=== PATIENT | female | born 1945 | race Caucasian/White ===

== ENCOUNTER 2020-11-11 09:35 | Inpatient (IN) | payer MEDICARE, SELFPAY ==
[2020-11-11] VITALS (13 sets, daily range): BP systolic 129–149; BP diastolic 58–107; PULSE 18–76; RESP 17–24; TEMP 36.6–37.6; O2SAT 81–94; BMI 21.4; BMI 22.3
--- NOTE | 2020-11-11 09:44 | EKG12_ITS ---
Test Reason : FALL Blood Pressure : / mmHG Vent. Rate : 067 BPM Atrial Rate : 067 BPM P-R Int : 160 ms QRS Dur : 098 ms QT Int : 420 ms P-R-T Axes : 027 054 054 degrees QTc Int : 443 ms Normal sinus rhythm Nonspecific ST and T wave abnormality Abnormal ECG Confirmed by CHENCHO MERLOS, CHIDI ([id number]), film editor ALYSSIA WHITMAN ([id number]) on 11/12/2020 1:47:36 PM Referred By: AIDA Confirmed By:CHIDI PAIZ MD
--- NOTE | 2020-11-11 09:45 | EDS_ITS ---
HPI History of Present Illness Chief Complaint: Fall Informant: patient and EMS Onset/Context/Timing Onset: Yesterday Context: Gradual Onset Timing: Continuous Quality: weakness, resulting in minor falls Location: all over Current Severity: Moderate Maximum Severity: Moderate Worsened by: nothing Relieved by: nothing Associated Symptoms Associated Symptoms: pt denies any now Narrative Narrative: Patient with severe dementia who is at her baseline mental status according to family, according to EMS, presenting after a couple of minor falls since yesterday without injury, presumably due to feeling weak. She denies any complaints. However review of systems is limited due to her dementia. Per EMS she had a temperature of 100.1, and was hypoxic at 88%, she is 81% on room air here and is not on any home oxygen for any reason. At this time history is based on EMS since there is no family present. She does live at home with her . Covid status unknown at this time. [facility] Medical History (Updated 11/11/20 @ 11:[address] Se Kuhn MD) Dementia Diabetes Diabetes HTN (hypertension) Home Medications amlodipine 2.5 mg PO DAILY 11/11/20 [History Last Taken Unknown] aspirin 81 mg PO/SL DAILY 11/11/20 [History Last Taken Unknown] citalopram 20 mg PO DAILY 11/11/20 [History Last Taken Unknown] magnesium 500 mg PO/SL DAILY 11/11/20 [History Last Taken Unknown] metformin 500 mg PO BID 11/11/20 [History Last Taken Unknown] metoprolol tartrate 25 mg PO BID 11/11/20 [History Last Taken Unknown] olanzapine 2.5 mg PO QHS 11/11/20 [History Last Taken Unknown] trazodone 50 mg PO QHS 11/11/20 [History Last Taken Unknown] Allergy/AdvReac Type Severity Reaction Status Date / Time Penicillins Allergy Unknown Verified 11/11/20 09:37 Surgical History (Updated 11/11/20 @ 10:07 by Bong Boss) Stented coronary artery Stented coronary artery Social History Smoking Status: Current every day smoker tobacco type: cigarettes ROS ROS ED Review of Systems ROS Unobtainable: due to mental condition Constitutional Constitutional ED: Denies chills or fever(s) Eyes Eyes: Denies change in vision or diplopia ENT ENT ED: Denies ear pain or sore throat Cardiovascular Cardiovascular: Denies chest pain or palpitations Respiratory/Chest Respiratory/Chest: Denies cough or dyspnea Gastrointestinal Gastrointestinal: Denies abdominal pain or vomiting Musculoskeletal Musculoskeletal: Denies back pain or neck pain Integumentary Denies abscess or rash Neurologic Neurologic: Reports as per HPI and confusion; Denies headache(s), paresthesias, seizures, syncope or weakness EXAM Physical Exam Const Vital Signs: 11/11/20 09:37 11/11/20 09:46 11/11/20 09:59 Temperature 98.9 F 99.0 F Temperature Source Oral Oral Pulse Rate 71 68 68 Respiratory Rate 24 H 17 18 Respiratory Effort Short of Breath Respiratory Depth Normal Respiratory Pattern Normal Blood Pressure 149/107 H 129/61 H Blood Pressure Mean 121 83 Pulse Ox 81 90 93 Oxygen Delivery Method Room Air Nasal Cannula Nasal Cannula Oxygen Flow Rate (L/min) 3 3 11/11/20 11:40 Temperature 98.8 F Temperature Source Oral Pulse Rate 76 Respiratory Rate 18 Respiratory Effort Respiratory Depth Respiratory Pattern Blood Pressure 138/97 H Blood Pressure Mean 110 Pulse Ox 93 Oxygen Delivery Method Nasal Cannula Oxygen Flow Rate (L/min) 6 Positive well nourished and well developed General Appearance ED: well developed and NAD HEENT Reports moist mucous membranes normocephalic and atraumatic Eyes PERRL and EOMs intact bilaterally Neck full ROM and supple Neck Narrative: No midline tenderness General: trachea midline Chest Wall Chest: Negative for tenderness Resp Resp Narrative: Mildly tachypneic no respiratory distress. Few rhonchi at the bases, otherwise diminished and fairly clear. Cardio regular rate, regular rhythm and no murmurs Rate: Negative for tachycardic GI non-tender and non-distended Auscultation: normoactive bowel sounds Palpation: soft external exam normal Narrative: Incontinent of urine, foul-smelling as nurses change her Back/Spine no CVA tenderness, normal to inspection and thoraco-lumbar ROM normal Back/Spine Narrative: No midline tenderness throughout spine General Back: other FROM Extremity normal to inspection General Extremety ED: Negative for edema, pulses abnormal or tenderness General Extremity: Negative for edema or pulses abnormal Neuro CN's II-XII intact bilaterally and no sensory deficits noted Sensorium / Orientation: awake, alert and oriented to person; Negative for oriented to place or oriented to time Motor Exam: strength 5/5 throughout Skin no rashes or lesions noted and no wounds MDM MDM MDM Narrative Medical decision making narrative: Patient is breathing and satting well on a 2 L nasal cannula, 93%. She was 81% on room air with a good waveform. Chest x- ray suggests venous congestion/CHF. She does not have a echocardiogram on record here. Added a BNP which is pending at this time. She is not prerenal. She tests positive for COVID-19. Urine shows suggestion of infection as was sent for culture as were blood, she was given a dose of empiric antibiotics because of this possibility, this was a catheterized specimen. Decadron 6mg given. After discussing with the who arrived later, patient has had minimal if any coughing, but she smokes and he was not concerned about it. No dyspnea or other complaints from the patient other than being weak and having trouble standing due to this since yesterday. She was not vaccinated against Covid. He is dumbfounded that she has it because he has been the only one she has been having contact with, and he has not felt poorly although he did have the mole during a vaccine and has basically had a smoker's cough no other symptoms. Lab Data Attestation: I reviewed the patient's lab results. Labs: Laboratory Results - last 24 hr 11/11/20 11/11/20 11/11/20 09:30 09:30 10:08 WBC 3.5 L RBC 4.75 Hgb 15.2 H Hct 44.5 MCV 93.7 MCH 32.0 MCHC 34.2 RDW Std Deviation 43.7 RDW Coeff of Rubens 12.6 Plt Count 87 L MPV 12.5 H Immature Gran % (Auto) 0.600 Neut % (Auto) 69.0 Lymph % (Auto) 19.0 Graham % (Auto) 10.5 H Eos % (Auto) 0.3 Baso % (Auto) 0.6 Absolute Neuts (auto) 2.4 Absolute Lymphs (auto) 0.67 L Nucleated RBC % 0 Platelet Estimate SLT DEC Sodium 128 L Potassium 3.8 Chloride 97 L Carbon Dioxide 25.0 Anion Gap 6 BUN 11 Creatinine 0.59 Estim Creat Clear Calc 46.90 Est GFR (MDRD) Af Amer 129 Est GFR (MDRD) Non-Af 106 BUN/Creatinine Ratio 18.7 Glucose 122 H Lactic Acid 1.1 Calcium 8.3 L Total Bilirubin 0.40 AST 24 ALT 17 Alkaline Phosphatase 74 Troponin I High Sens 10 Total Protein 7.5 Albumin 2.9 L Globulin 4.6 H Albumin/Globulin Ratio 0.6 L Urine Color Urine Clarity Urine pH Ur Specific [place] Urine Protein Urine Glucose (UA) Urine Ketones Urine Occult Blood Urine Nitrite Urine Bilirubin Urine Urobilinogen Ur Leukocyte Esterase Urine RBC Urine WBC Ur Squamous Epith Cells Urine Bacteria Urine Mucus 11/11/20 10:20 WBC RBC Hgb Hct MCV MCH MCHC RDW Std Deviation RDW Coeff of Rubens Plt Count MPV Immature Gran % (Auto) Neut % (Auto) Lymph % (Auto) Graham % (Auto) Eos % (Auto) Baso % (Auto) Absolute Neuts (auto) Absolute Lymphs (auto) Nucleated RBC % Platelet Estimate Sodium Potassium Chloride Carbon Dioxide Anion Gap BUN Creatinine Estim Creat Clear Calc Est GFR (MDRD) Af Amer Est GFR (MDRD) Non-Af BUN/Creatinine Ratio Glucose Lactic Acid Calcium Total Bilirubin AST ALT Alkaline Phosphatase Troponin I High Sens Total Protein Albumin Globulin Albumin/Globulin Ratio Urine Color Yellow Urine Clarity Cloudy Urine pH 6.5 Ur Specific [place] 1.015 Urine Protein 15 H Urine Glucose (UA) Normal Urine Ketones Negative Urine Occult Blood 25 H Urine Nitrite Positive H Urine Bilirubin Negative Urine Urobilinogen Normal Ur Leukocyte Esterase 25 H Urine RBC 0-5 SEEN Urine WBC 0-5 SEEN Ur Squamous Epith Cells 0-5 SEEN Urine Bacteria 4+ Urine Mucus 0 SEEN Radiography Diagnostic Testing: Radiology Impression Chest X-Ray 11/11/20 10:40 IMPRESSION: The findings suggest mild degree of vascular congestion and CHF with atelectasis at the right lung base. Electronically Signed: Tre Wallace MD at 11:01 EDT , Service support , EKG Initial EKG: Attestation: I personally reviewed and interpreted this EKG as follows: Interpretation: Sinus Rhythm, No Acute Injury Pattern (Normal axis) and Non-Specific ST Changes Prior EKG tracings: available for review Prior: Changed (Flattened T waves are new, otherwise unchanged) Discharge Plan Dx/Rx/DC Orders Clinical Impression: COVID-19, Hypoxemia, Acute UTI, Sepsis Disposition Disposition: Acute Care Hospital [facility]
[2020-11-11 09:57] LABS: Absolute Lymphocyte Count 0.67 X10^3/uL (0.83-4.51); Absolute Neutrophil Count 2.4 X10^3/uL (2.0-7.7); Basophil# 0.02 X10^3/uL; Basophil% 0.6 % (0-1); Eosinophil# 0.01 X10^3/uL; Eosinophils% 0.3 % (0-5); Hematocrit 44.5 % (37-47); Hemoglobin 15.2 g/dL (12.0-15.0); Lymphocyte # 0.67 X10^3/ul (0.83-4.51); Mean Corp Hgb Conc 34.2 g/dL (32-36); Mean Corpuscular Volume 93.7 fL (81-99); Mean Platelet Vol. 12.5 fl (6.2-12.0); Monocyte# 0.37 X10^3/uL; Monocyte% 10.5 % (0-10); NRBC Flagged by Analyzer 0 % (0-5); Neutrophil # 2.44 X10^3/uL (2.7-7.7); POSITIVE COUNT YES; Platelet Count 87 K/mm3 (150-450); RBC Distribution Width CV 12.6 % (11.6-14.6); RBC Distribution Width SD 43.7 fl (35.1-43.9); Red Blood Count 4.75 M/mm3 (4.2-5.4); White Blood Count 3.5 K/mm3 (4.4-11.0)
[2020-11-11 09:58] LABS: Differential Indicated SCAN CRITERIA MET
[2020-11-11 10:16] LABS: ALB/GLOB Ratio 0.6 RATIO (0.9-2.4); AST(SGOT) 24 U/L (15-37); Alanine Aminotransfer ALT/SGPT 17 U/L (13-56); Albumin, Serum 2.9 g/dL (3.2-5.0); Alkaline Phosphatase 74 U/L (45-117); Anion Gap 6 (5-15); BUN 11 mg/dL (7-18); BUN/Creat Ratio 18.7 RATIO (10-20); Calcium,Total 8.3 mg/dL (8.5-10.1); Chloride 97 mmol/L (98-107); Creatinine, Serum 0.59 mg/dL (0.55-1.02); EST Glomerular Filtration Rate 106 mL/min (>60); Est Glom Filt Rate - Afr Amer 129 mL/min (>60); Globulin 4.6 g/dL (2.2-4.2); Glucose 122 mg/dL (74-106); Potassium 3.8 mmol/L (3.5-5.1); Protein, Total 7.5 g/dL (6.4-8.2); Sodium Level 128 mmol/L (136-145); Troponin-I HS 10 pg/mL (3.0-54.0)
[2020-11-11 10:26] LABS: Platelet Estimate SLT DEC (ADEQ)
[2020-11-11] MEDS: Acetaminophen 325 MG Tablet 650 MG PO (10:28)
[2020-11-11 10:34] LABS: Mucous, Urine 0 SEEN /hpf (<or=2+)
[2020-11-11 10:38] LABS: Color, Urine Yellow (Yellow); Glucose, Dipstick Normal (Normal); Ketone-Dipstick Negative (Negative); Leukocyte Esterase-Dipstick 25 /ul (Negative); Nitrite-Dipstick Positive (Negative); Occult Blood-Urine 25 /ul (Negative); Protein-Dipstick 15 mg/dl (Negative); Specific Gravity, Urine 1.015 (1.002-1.030); Urine Bilirubin Dipstick Negative (Negative); Urine Clarity Cloudy (Clear); Urine Urobilinogen Normal (Normal); Urine pH 6.5 (5.0 - 8.0)
--- NOTE | 2020-11-11 10:40 | RAD_ITS ---
STUDY: X-RAY CHEST REASON FOR EXAM: Female, 75 years old. Weak, hypoxic TECHNIQUE: Single AP portable view of the chest. COMPARISON: Comparison is made with prior study dated 06/05/2013. FINDINGS: EKG electrodes are seen. Increased interstitial markings are seen in both lungs. This may represent a mild degree of CHF. Atelectasis and/or early infiltrate at the right lung base. Normal size heart. Normal mediastinum and paulina. Normal visualized pulmonary arteries. There is atherosclerotic calcification of the aortic arch with tortuosity. There are diffuse degenerative changes of the visualized thoracic spine. There is degenerative osteoarthritis of the bilateral shoulders. There is no demonstrated abnormality of the visualized soft tissue structures of the upper abdomen. RAD/Chest 1 View (Portable) IMPRESSION: The findings suggest mild degree of vascular congestion and CHF with atelectasis at the right lung base. Electronically Signed: Tre Wallace MD at 11:01 EDT , Service support ,
[2020-11-11 10:44] LABS: Bacteria 4+ /hpf (None Seen); Red Blood Cells-Urine 0-5 SEEN /hpf (0-5); Squamous Epithelial Cells - UA 0-5 SEEN /hpf (5-10); White Blood Cells 0-5 SEEN /hpf (0-5)
[2020-11-11 10:51] LABS: Lactic Acid 1.1 mmol/L (0.4-1.9)
[2020-11-11] MEDS: dexAMETHasone 10 MG/ML Vial 6 MG IV (11:37)
--- NOTE | 2020-11-11 11:53 | NURSING ---
MS 2 COVID 19, HYPOXEMIA, UTI TERELETSKY
[2020-11-11 12:01] LABS: BNP,B-Type NATRIURETIC PEPTIDE 94.1 pg/mL (0-100)
[2020-11-11] MEDS: Ceftriaxone 1 GM/50 ML BAG IV (12:38)
--- NOTE | 2020-11-11 16:01 | NURSING ---
patient very confused frequently asking for bandaid and hitting call light despite and this nurse being in room. Jack states that patient no longer actively smokes but still lights cigarettes only to put them out immediately due to confusion
[2020-11-11] MEDS: Enoxaparin 40 MG/0.4 ML Syringe SC (18:09)
[2020-11-11] MEDS: 0.9% Saline Lock 10 ML Syringe IV ×2 (18:11→20:27)
--- NOTE | 2020-11-11 19:10 | HP.PCM.HOS_ITS ---
HPI - General General Date of Admission: 11/11/20 Date of Service: 11/11/20 Chief Complaint: Generalized weakness HPI Narrative EKATERINA POE, is a 75 F who presents to the emergency room at [facility] secondary to generalized weakness and inability to ambulate. According to the , patient has dementia and is unable to leave her home, she is mobile within her home however with minimal assistance. Today he states that the patient was very weak and could not stand. Work-up in the emergency room included labs which revealed a low white blood cell count of 3.5, hemoglobin was 15.2, sodium was 128, chloride was 97. Urinalysis was positive for nitrites and leukocyte esterase, she had 4+ bacteria in the urine, 0-5 RBCs and 0-5 WBCs were noted. Patient had a chest x-ray performed which showed vascular congesti on, patient had a COVID-19 test that was positive. Patient required supplemental oxygen at 6 L via nasal cannula to maintain her pulse ox above 90%. Patient was admitted to [facility] for COVID-19 pneumonia and acute hypoxic respiratory failure, according to the patient's , patient did not have a COVID-19 vaccine because she would not leave the house to get it. Patient's has been vaccinated he denies any Covid symptomology in the recent past or present. Patient is a DNR CC arrest no intubation according to the [facility] Medical History (Updated 11/11/20 @ 15:48 by Robby Posada) Anxiety Coronary artery disease Dementia Depression Diabetes Diabetes Former smoker HTN (hypertension) Irregular heart beat Home Medications amlodipine 2.5 mg PO DAILY 11/11/20 [History Last Taken 11/11/20 08:00] aspirin 81 mg PO/SL DAILY 11/11/20 [History Last Taken 11/11/20 08:00] citalopram 20 mg PO DAILY 11/11/20 [History Last Taken 11/11/20 08:00] magnesium 500 mg PO/SL BID 11/11/20 [History Last Taken 11/11/20 08:00] metformin 500 mg PO BID 11/11/20 [History Last Taken 11/11/20 08:00] metoprolol tartrate 25 mg PO BID 11/11/20 [History Last Taken 11/11/20 08:00] olanzapine 2.5 mg PO QHS 11/11/20 [History Last Taken 11/10/20 21:00] trazodone 50 mg PO QHS 11/11/20 [History Last Taken 11/10/20 21:00] Allergy/AdvReac Type Severity Reaction Status Date / Time Penicillins Allergy Unknown Verified 11/11/20 09:37 Surgical History (Updated 11/11/20 @ 15:48 by Robby Posada) History of appendectomy History of cholecystectomy History of coronary artery stent placement Stented coronary artery Stented coronary artery Social History Smoking Status: Former smoker ROS ROS Narrative Review of systems was unobtainable due to the patient's dementia Vital Signs Vital Signs Vital Signs: 11/11/20 09:37 11/11/20 09:46 11/11/20 09:59 Temperature 98.9 F 99.0 F Temperature Source Oral Oral Pulse Rate 71 68 68 Respiratory Rate 24 H 17 18 Respiratory Effort Short of Breath Respiratory Depth Normal Respiratory Pattern Normal Blood Pressure 149/107 H 129/61 H Blood Pressure Mean 121 83 Blood Pressure Source Blood Pressure Position Blood Pressure Location Pulse Ox 81 90 93 Oxygen Delivery Method Room Air Nasal Cannula Nasal Cannula Oxygen Flow Rate (L/min) 3 3 11/11/20 11:40 11/11/20 12:41 11/11/20 12:45 Temperature 98.8 F 99.6 F H 99.6 F H Temperature Source Oral Oral Oral Pulse Rate 76 67 18 L Respiratory Rate 18 18 18 Respiratory Effort Respiratory Depth Respiratory Pattern Blood Pressure 138/97 H 132/107 H 132/107 H Blood Pressure Mean 110 115 115 Blood Pressure Source Blood Pressure Position Blood Pressure Location Pulse Ox 93 93 93 Oxygen Delivery Method Nasal Cannula Nasal Cannula Nasal Cannula Oxygen Flow Rate (L/min) 6 6 6 11/11/20 14:00 11/11/20 15:13 11/11/20 15:52 Temperature 99.0 F 99.0 F 98.3 F Temperature Source Oral Oral Oral Pulse Rate 66 68 64 Respiratory Rate 20 H 18 18 Respiratory Effort Respiratory Depth Respiratory Pattern Blood Pressure 129/93 H 129/93 H 130/58 H Blood Pressure Mean 105 105 82 Blood Pressure Source Monitor Blood Pressure Position Semi-Fowlers Blood Pressure Location Right Arm Pulse Ox 92 92 92 Oxygen Delivery Method Nasal Cannula Nasal Cannula Nasal Cannula Oxygen Flow Rate (L/min) 7 7 10 11/11/20 15:53 11/11/20 17:08 Temperature Temperature Source Pulse Rate Respiratory Rate Respiratory Effort Normal Non-Labored Respiratory Depth Normal Respiratory Pattern Normal Blood Pressure Blood Pressure Mean Blood Pressure Source Blood Pressure Position Blood Pressure Location Pulse Ox 93 Oxygen Delivery Method Nasal Cannula Oxygen Flow Rate (L/min) 10 6 Weight Weight: 57.2 kg Body Mass Index (BMI) 22.3 Physical Exam Const alert and no apparent distress General Appearance: cooperative, well kempt and well developed Orientation / Consciousness: awake, oriented to person, oriented to place and oriented to time HEENT normocephalic, head/scalp atraumatic, hearing grossly normal bilaterally and moist oral mucous membranes Eyes PERRL, EOMs intact bilaterally and conjunctivae normal Neck nuchal rigidity, supple, no JVD, thyroid normal and no carotid bruits General: trachea midline Resp normal respiratory effort, no retractions, no use of accessory muscles and clear to auscultation bilaterally Auscultation: Negative for rales, rhonchi or wheezes Cardio regular rate, regular rhythm, S1 normal heart sound, S2 normal heart sound, no murmurs, no rub and no gallops GI normal to inspection, nondistended, normoactive bowel sounds, soft to palpation, non-tender and non-distended Extremity no clubbing, cyanosis or edema Skin no rashes or lesions noted General Skin Exam: no breakdown Neuro CN's II-XII intact bilaterally, no focal motor deficits and no sensory deficits noted Neuro Narrative: Patient is alert, she is confused Sensorium / Orientation: awake and alert Speech: speech normal Psych thought process normal Psych Narrative: Patient is alert but confused Results Lab / Micro Data Result Diagrams: 11/11/20 09:30 11/11/20 09:30 Labs: Laboratory Results - last 24 hr 11/11/20 09:30: WBC 3.5 L, RBC 4.75, Hgb 15.2 H, Hct 44.5, MCV 93.7, MCH 32.0, MCHC 34.2, RDW Std Deviation 43.7, RDW Coeff of Rubens 12.6, Plt Count 87 L, MPV 12.5 H, Immature Gran % (Auto) 0.600, Neut % (Auto) 69.0, Lymph % (Auto) 19.0, [place] % (Auto) 10.5 H, Eos % (Auto) 0.3, Baso % (Auto) 0.6, Absolute Neuts (auto) 2.4, Absolute Lymphs (auto) 0.67 L, Nucleated RBC % 0, Platelet Estimate SLT 11/11/20 09:30: Sodium 128 L, Potassium 3.8, Chloride 97 L, Carbon Dioxide 25.0, Anion Gap 6, BUN 11, Creatinine 0.59, Estim Creat Clear Calc 46.90, Est GFR (MDRD) Af Amer 129, Est GFR (MDRD) Non-Af 106, BUN/Creatinine Ratio 18.7, Glucose 122 H, Calcium 8.3 L, Total Bilirubin 0.40, AST 24, ALT 17, Alkaline Phosphatase 74, Troponin I High Sens 10, Total Protein 7.5, Albumin 2.9 L, Globulin 4.6 H, Albumin/Globulin Ratio 0.6 L 11/11/20 09:30: B-Natriuretic Peptide 94.1 11/11/20 10:08: Lactic Acid 1.1 11/11/20 10:20: Urine Color Yellow, Urine Clarity Cloudy, Urine pH 6.5, Ur Specific [place] 1.015, Urine Protein 15 H, Urine Glucose (UA) Normal, Urine Ketones Negative, Urine Occult Blood 25 H, Urine Nitrite Positive H, Urine Bilirubin Negative, Urine Urobilinogen Normal, Ur Leukocyte Esterase 25 H, Urine RBC 0-5 SEEN, Urine WBC 0-5 SEEN, Ur Squamous Epith Cells 0-5 SEEN, Urine Bacteria 4+, Urine Mucus 0 SEEN Micro: Microbiology 11/11/20 09:47 Nasal Secretion SARS-CoV-2 Antigen (Rapid) - Final SARS-CoV-2 (COVID 19) Radiology Impression Chest X-Ray 11/11/20 10:40 IMPRESSION: The findings suggest mild degree of vascular congestion and CHF with atelectasis at the right lung base. Electronically Signed: Tre Wallace MD at 11:01 EDT , Service support , Assessment & Plan Assessment/Plan (1) COVID-19: PLAN: 1. COVID-19 pneumonia-patient will be placed on remdesivir and dexamethasone #2 acute hypoxic respiratory failure secondary to #1-patient is on supplemental oxygen, pulse ox will be monitored #3 acute cystitis-patient was placed on Rocephin #3 Alzheimer's dementia-patient is a DNR CC arrest no intubation according to the . #4 essential hypertension Charges/Coding Visit Charges Inpatient E&M: 67647 Init Hosp L3
[2020-11-11] MEDS: OLANZapine 2.5 MG Tablet PO (20:14)
[2020-11-11] MEDS: Metoprolol Tartrate 25 MG Tablet PO (20:14)
[2020-11-11] MEDS: traZODone 50 MG Tablet PO (20:15)
[2020-11-12] VITALS (12 sets, daily range): BP systolic 104–153; BP diastolic 50–72; PULSE 53–66; RESP 18–20; TEMP 36.1–37.2; O2SAT 88–99
[2020-11-12 07:06] LABS: Absolute Lymphocyte Count 0.86 X10^3/uL (0.83-4.51); Absolute Neutrophil Count 2.9 X10^3/uL (2.0-7.7); Basophil# 0.01 X10^3/uL; Basophil% 0.2 % (0-1); Hematocrit 48.3 % (37-47); Hemoglobin 15.8 g/dL (12.0-15.0); Lymphocyte # 0.86 X10^3/ul (0.83-4.51); Lymphocyte % 20.4 % (19-41); Mean Corp Hgb Conc 32.7 g/dL (32-36); Mean Corpuscular Hgb 31.5 pg (27.0-32.0); Mean Corpuscular Volume 96.4 fL (81-99); Mean Platelet Vol. 11.3 fl (6.2-12.0); Monocyte# 0.48 X10^3/uL; Monocyte% 11.4 % (0-10); NRBC Flagged by Analyzer 0 % (0-5); Neutrophil # 2.85 X10^3/uL (2.7-7.7); Neutrophil % 67.8 % (47-70); POSITIVE COUNT YES; Platelet Count 94 K/mm3 (150-450); RBC Distribution Width CV 12.2 % (11.6-14.6); RBC Distribution Width SD 43.2 fl (35.1-43.9); Red Blood Count 5.01 M/mm3 (4.2-5.4); White Blood Count 4.2 K/mm3 (4.4-11.0)
[2020-11-12 08:06] LABS: ALB/GLOB Ratio 0.5 RATIO (0.9-2.4); AST(SGOT) 21 U/L (15-37); Alanine Aminotransfer ALT/SGPT 18 U/L (13-56); Albumin, Serum 2.4 g/dL (3.2-5.0); Alkaline Phosphatase 65 U/L (45-117); Anion Gap 4 (5-15); BUN 19 mg/dL (7-18); BUN/Creat Ratio 33.2 RATIO (10-20); Calcium,Total 8.3 mg/dL (8.5-10.1); Chloride 103 mmol/L (98-107); Creatinine, Serum 0.57 mg/dL (0.55-1.02); EST Glomerular Filtration Rate 110 mL/min (>60); Est Glom Filt Rate - Afr Amer 133 mL/min (>60); Estimated Creatinine Clearance 41.45 ml/min; Globulin 4.6 g/dL (2.2-4.2); Glucose 115 mg/dL (74-106); Potassium 4.4 mmol/L (3.5-5.1); Sodium Level 131 mmol/L (136-145)
[2020-11-12] MEDS: Ceftriaxone 1 GM/50 ML BAG IV (09:00)
[2020-11-12] MEDS: 0.9% Saline Lock 10 ML Syringe IV (09:00)
[2020-11-12] MEDS: dexAMETHasone 4 MG Tablet 6 MG PO (09:09)
[2020-11-12] MEDS: Enoxaparin 40 MG/0.4 ML Syringe SC (09:09)
[2020-11-12] MEDS: Aspirin 81 MG TAB.CHEW PO (09:09)
[2020-11-12] MEDS: amLODIPine 2.5 MG Tablet PO (09:09)
[2020-11-12] MEDS: Citalopram 20 MG Tablet PO (09:09)
[2020-11-12] MEDS: Metoprolol Tartrate 25 MG Tablet PO ×2 (10:51→21:15)
--- NOTE | 2020-11-12 12:20 | CASEMGMT ---
SUSI AYALA Assessment: Face to Face with pt for initial transition planning/care coordination assessment. RN JAMIE introduced self and role at [facility], pt voices understanding and consents to assessment. Pt in room and asks that all questions be asked to him. Pt did shake head yes to this. All assessment questions answered by . Pt sitting up in chair in no distress with O2 on, this CM brought in her lunch tray. She was anxious to eat lunch. Care providers, pharmacy, and demographics verified/updated. Admitting Dx: COVID 19, UTI, hypoxemia PCP: [facility] Specialists: [facility] Insurance: MMO Medicare Prescription Benefit: yes LW/HPOA: Pt denies pt having a LW/DPOA nor the need for info regarding AD. LNOK: Ramakrishna Kim Living Arrangements: Pt lives with in a mobile home with two steps to enter. reports pt can dress herself but he assists her with bathing using a shower chair. Transportation: Pt transports her to medical appts. DME/HHC/SNF: Pt has a walker but does not use, shower chair and bars at toilet. Pt has not had any previous HHC but has been at [facility]. Pt was first tested at [facility] for COVID. Pt is negative and has been vaccinated. He states they do not plan to quarantine from each other but states they do not come within 6 feet of each other anyway. states they have groceries and supplies as he goes 2x/month. Provided a list of local in network DME companies, pt chose [employer]. He states no concerns with going home at time of dc. Pt and states no further concerns/needs. CM to follow. Advised pt to ask CM if any further question/concerns/needs arise, voices understanding. Pt Goal: Home Plan: TBD, based on therapy recommendations. Spoke with Thao nurse once CM left room who states pt came in unkempt and patient my need a facility. Notified May of this. Therapy left room as this CM was arriving.
--- NOTE | 2020-11-12 13:04 | CASEMGMT ---
Social Work Note SW received referral for possible neglect/SNF placement. SW spoke with PT, pt physically fine to return home. SW in to speak with pt and pt's Ramakrishna. Pt with Dementia, eating in chair. Both pt and Ramakrishna answered questions. Ramakrishna and pt state no concerns with pt returning home at discharge. Ramakrishna states he assists pt with bathing about twice a week and he cooks meals for pt daily. Ramakrishna states he cooks three meals a day for pt and pt eats them. Pt confirms that she eats the meal Ramakrishna provides, states Ramakrishna is a good cook. SW spoke with Ramakrishna about Community Resources including Private Duty Aides, [facility], list of SNF in [facility] that would accept pt's insurance once pt is out of quarantine. Ramakrishna agreeable to taking resources. Ramakrishna states that at this time he has everything covered, denied the need for additional help in the home. SW offered support to Ramakrishna as it can be challenging taking care of someone 24/7 with Dementia. Ramakrishna states pt's niece lives up the road from them and she comes over to assists as needed too. Ramakrishna and pt denied additional needs or concerns at this time. Ramakrishna confirms plan is for pt to return home. SW will likely make APS report due to concerns of pt's Ramakrishna providing enough care for pt. Aislinn Rowe BIOPROCESS DEVELOPMENT ENGINEER, SUPERINTENDENT COMPRESSOR STATIONS
--- NOTE | 2020-11-12 14:49 | CHAPLAIN ---
Type of Pastoral Visit ___ Initial Visit ___ Follow-up Visit ___ On-call Visit ___ General Patient Visit ___ Spiritual Assessment ___ Family Conference ___ Bereavement ___ Rapid Response ___ Code Blue ___ Other (describe below) Pastoral Care Referral From ___ Patient ___ Family ___ Nurse ___ Physician ___ On Site Services Specialist ___ Electrical Appliance Mechanic ___ Other (describe below) Sacrament/Intervention ___ Active listening ___ Anointing ___ Mandaen ___ Bereavement ___ Communion ___ Marya exploration ___ ___ Life review ___ Prayer ___ Reconciliation ___ Sacrament of Sick ___ Supportive presence ___ Wedding ___ Other (describe below) Pastoral Comments unable to reach patient by phone so card was left to offer support to pt
--- NOTE | 2020-11-12 18:55 | PCM.PN.HOSP ---
Subjective Subjective Patient was seen and examined today, she is on 4 L via nasal cannula at this time, she does not appear in any distress and she is alert but confused. Objective Data Objective Data Vital Signs: Vital Signs Temp Pulse Resp BP Pulse Ox 97.0 F L 66 18 123/68 H 99 11/12/20 17:46 11/12/20 17:46 11/12/20 17:46 11/12/20 17:46 11/12/20 17:46 Oxygen Flow Rate (L/min) 4 Oxygen Delivery Method Nasal Cannula Weight: 57.209 kg Body Mass Index (BMI) 22.3 Intake & Output: Intake and Output for Last 24 Hours 11/10/20 11/11/20 11/12/20 23:59 23:59 23:59 Intake Total 803.00 / 803.00 1949 Output Total / Balance 803.00 / 803.00 1947 Lab / Micro Data Result Diagrams: 11/12/20 06:50 11/12/20 06:50 Labs: Laboratory Results - last 24 hr 11/12/20 06:50: WBC 4.2 L, RBC 5.01, Hgb 15.8 H, Hct 48.3 H, MCV 96.4, MCH 31.5, MCHC 32.7, RDW Std Deviation 43.2, RDW Coeff of Rubens 12.2, Plt Count 94 L, MPV 11.3, Immature Gran % (Auto) 0.200, Neut % (Auto) 67.8, Lymph % (Auto) 20.4, [place] % (Auto) 11.4 H, Eos % (Auto) 0.0, Baso % (Auto) 0.2, Absolute Neuts (auto) 2.9, Absolute Lymphs (auto) 0.86, Nucleated RBC % 0 11/12/20 06:50: Sodium 131 L, Potassium 4.4, Chloride 103, Carbon Dioxide 24.0, Anion Gap 4 L, BUN 19 H, Creatinine 0.57, Estim Creat Clear Calc 41.45, Est GFR (MDRD) Af Amer 133, Est GFR (MDRD) Non-Af 110, BUN/Creatinine Ratio 33.2 H, Glucose 115 H, Calcium 8.3 L, Total Bilirubin 0.20, AST 21, ALT 18, Alkaline Phosphatase 65, Total Protein 7.0, Albumin 2.4 L, Globulin 4.6 H, Albumin/Globulin Ratio 0.5 L Micro: Microbiology 11/11/20 10:20 Urine, Catheterized Urine Culture - Preliminary Presumptive E. coli 11/11/20 09:47 Nasal Secretion SARS-CoV-2 Antigen (Rapid) - Final SARS-CoV-2 (COVID 19) Physical Exam Narrative alert and no apparent distress General Appearance: cooperative, well kempt and well developed Orientation / Consciousness: awake, oriented to person, oriented to place and oriented to time HEENT normocephalic, head/scalp atraumatic, hearing grossly normal bilaterally and moist oral mucous membranes Eyes PERRL, EOMs intact bilaterally and conjunctivae normal Neck nuchal rigidity, supple, no JVD, thyroid normal and no carotid bruits General: trachea midline Resp normal respiratory effort, no retractions, no use of accessory muscles and clear to auscultation bilaterally Auscultation: Negative for rales, rhonchi or wheezes Cardio regular rate, regular rhythm, S1 normal heart sound, S2 normal heart sound, no murmurs, no rub and no gallops GI normal to inspection, nondistended, normoactive bowel sounds, soft to palpation, non-tender and non-distended Extremity no clubbing, cyanosis or edema Skin no rashes or lesions noted General Skin Exam: no breakdown Neuro CN's II-XII intact bilaterally, no focal motor deficits and no sensory deficits noted Neuro Narrative: Patient is alert, she is confused Sensorium / Orientation: awake and alert Speech: speech normal Psych thought process normal Psych Narrative: Patient is alert but confused Assessment & Plan Assessment/Plan (1) COVID-19: PLAN: 1. COVID-19 pneumonia-patient will be placed on remdesivir and dexamethasone #2 acute hypoxic respiratory failure secondary to #1-patient is on supplemental oxygen, pulse ox will be monitored #3 acute cystitis-patient continues on Rocephin #3 Alzheimer's dementia-patient is a DNR CC arrest no intubation according to the . #4 essential hypertension Charges/Coding Visit Charges Inpatient E&M: 42996 Subs Hosp L2
[2020-11-12] MEDS: OLANZapine 2.5 MG Tablet PO (21:14)
[2020-11-12] MEDS: traZODone 50 MG Tablet PO (21:14)
[2020-11-13] VITALS (10 sets, daily range): BP systolic 131–185; BP diastolic 56–82; PULSE 54–64; RESP 18; TEMP 36.2–37.2; O2SAT 93–95
[2020-11-13 06:29] LABS: Absolute Lymphocyte Count 1.11 X10^3/uL (0.83-4.51); Absolute Neutrophil Count 4.1 X10^3/uL (2.0-7.7); Basophil# 0.01 X10^3/uL; Basophil% 0.2 % (0-1); Hematocrit 44.9 % (37-47); Hemoglobin 15.2 g/dL (12.0-15.0); Lymphocyte # 1.11 X10^3/ul (0.83-4.51); Lymphocyte % 19.2 % (19-41); Mean Corp Hgb Conc 33.9 g/dL (32-36); Mean Corpuscular Hgb 31.9 pg (27.0-32.0); Mean Corpuscular Volume 94.3 fL (81-99); Mean Platelet Vol. 12.2 fl (6.2-12.0); Monocyte# 0.53 X10^3/uL; Monocyte% 9.2 % (0-10); NRBC Flagged by Analyzer 0 % (0-5); Neutrophil # 4.12 X10^3/uL (2.7-7.7); Neutrophil % 71.1 % (47-70); Platelet Count 102 K/mm3 (150-450); RBC Distribution Width CV 12.3 % (11.6-14.6); Red Blood Count 4.76 M/mm3 (4.2-5.4); White Blood Count 5.8 K/mm3 (4.4-11.0)
[2020-11-13 06:57] LABS: ALB/GLOB Ratio 0.5 RATIO (0.9-2.4); AST(SGOT) 26 U/L (15-37); Alanine Aminotransfer ALT/SGPT 17 U/L (13-56); Albumin, Serum 2.3 g/dL (3.2-5.0); Alkaline Phosphatase 81 U/L (45-117); Anion Gap 4 (5-15); BUN 19 mg/dL (7-18); BUN/Creat Ratio 41.4 RATIO (10-20); Calcium,Total 7.9 mg/dL (8.5-10.1); Chloride 98 mmol/L (98-107); Creatinine, Serum 0.46 mg/dL (0.55-1.02); EST Glomerular Filtration Rate 142 mL/min (>60); Est Glom Filt Rate - Afr Amer 171 mL/min (>60); Estimated Creatinine Clearance 41.45 ml/min; Globulin 4.9 g/dL (2.2-4.2); Glucose 124 mg/dL (74-106); Potassium 4.2 mmol/L (3.5-5.1); Protein, Total 7.2 g/dL (6.4-8.2); Sodium Level 124 mmol/L (136-145)
[2020-11-13] MEDS: Ceftriaxone 1 GM/50 ML BAG IV (08:37)
[2020-11-13] MEDS: dexAMETHasone 4 MG Tablet 6 MG PO (08:37)
[2020-11-13] MEDS: Aspirin 81 MG TAB.CHEW PO (08:38)
[2020-11-13] MEDS: Citalopram 20 MG Tablet PO (08:38)
[2020-11-13] MEDS: amLODIPine 2.5 MG Tablet PO (08:49)
[2020-11-13] MEDS: Enoxaparin 40 MG/0.4 ML Syringe SC (08:51)
--- NOTE | 2020-11-13 09:21 | CASEMGMT ---
TC to pt to discuss HHC for therapy. He states that patient was getting around the home just fine. Asked if it would help build pt strength up after having COVID. He states he is on his way in. He would like to see how pt does today with therapy as yesterday she was doing pretty well. SUSI CM to follow.
--- NOTE | 2020-11-13 11:18 | CASEMGMT ---
Social Work Note SW placed a call to Avel with [facility] and provided [facility] referral. Aislinn Rowe RECEIVER, [employer]
--- NOTE | 2020-11-13 18:23 | PN.HOSP_ITS ---
Subjective Subjective Patient was seen and examined today, she requires 3 L of supplemental oxygen via nasal cannula at this time. I talked briefly to the who was in the room at the time my examination. Objective Data Objective Data Vital Signs: Vital Signs Temp Pulse Resp BP Pulse Ox 98.9 F 64 18 185/74 H 95 11/13/20 17:23 11/13/20 17:23 11/13/20 17:23 11/13/20 17:23 11/13/20 17:23 Oxygen Flow Rate (L/min) 3 Oxygen Delivery Method Nasal Cannula Weight: 57.209 kg Body Mass Index (BMI) 22.3 Intake & Output: Intake and Output for Last 24 Hours 11/11/20 11/12/20 11/13/20 23:59 23:59 23:59 Intake Total 803.00 / 803.00 1949 / 1949 1000 / 1000 Output Total 2 / 2 / Balance 803.00 / 803.00 1948 / 1947 998 / 998 Lab / Micro Data Result Diagrams: 11/13/20 06:15 11/13/20 06:15 Labs: Laboratory Results - last 24 hr 11/13/20 06:15: WBC 5.8, RBC 4.76, Hgb 15.2 H, Hct 44.9, MCV 94.3, MCH 31.9, MCHC 33.9, RDW Std Deviation 43.0, RDW Coeff of Rubens 12.3, Plt Count 102 L, MPV 12.2 H, Immature Gran % (Auto) 0.300, Neut % (Auto) 71.1 H, Lymph % (Auto) 19.2, [place] % (Auto) 9.2, Eos % (Auto) 0.0, Baso % (Auto) 0.2, Absolute Neuts (auto) 4.1, Absolute Lymphs (auto) 1.11, Nucleated RBC % 0 11/13/20 06:15: Sodium 124 L, Potassium 4.2, Chloride 98, Carbon Dioxide 22.0, Anion Gap 4 L, BUN 19 H, Creatinine 0.46 L, Estim Creat Clear Calc 41.45, Est GFR (MDRD) Af Amer 171, Est GFR (MDRD) Non-Af 142, BUN/Creatinine Ratio 41.4 H, Glucose 124 H, Calcium 7.9 L, Total Bilirubin 0.50, AST 26, ALT 17, Alkaline Phosphatase 81, Total Protein 7.2, Albumin 2.3 L, Globulin 4.9 H, Album in/Globulin Ratio 0.5 L Micro: Microbiology 11/11/20 10:20 Urine, Catheterized Urine Culture - Final Presumptive E. coli 11/11/20 09:47 Nasal Secretion SARS-CoV-2 Antigen (Rapid) - Final SARS-CoV-2 (COVID 19) Physical Exam Narrative alert and no apparent distress General Appearance: cooperative, well kempt and well developed Orientation / Consciousness: awake, oriented to person, oriented to place and oriented to time HEENT normocephalic, head/scalp atraumatic, hearing grossly normal bilaterally and moist oral mucous membranes Eyes PERRL, EOMs intact bilaterally and conjunctivae normal Neck nuchal rigidity, supple, no JVD, thyroid normal and no carotid bruits General: trachea midline Resp normal respiratory effort, no retractions, no use of accessory muscles and clear to auscultation bilaterally Auscultation: Negative for rales, rhonchi or wheezes Cardio regular rate, regular rhythm, S1 normal heart sound, S2 normal heart sound, no murmurs, no rub and no gallops GI normal to inspection, nondistended, normoactive bowel sounds, soft to palpation, non-tender and non-distended Extremity no clubbing, cyanosis or edema Skin no rashes or lesions noted General Skin Exam: no breakdown Neuro CN's II-XII intact bilaterally, no focal motor deficits and no sensory deficits noted Neuro Narrative: Patient is alert, she is confused Sensorium / Orientation: awake and alert Speech: speech normal Psych thought process normal Psych Narrative: Patient is alert but confused Assessment & Plan Assessment/Plan (1) COVID-19: PLAN: 1. COVID-19 pneumonia-continue dexamethasone and remdesivir-day #3 #2 acute hypoxic respiratory failure secondary to #1-patient is on supplemental oxygen, pulse ox will be monitored #3 acute cystitis secondary to E. coli-patient continues on Rocephin #3 Alzheimer's dementia-patient is a DNR CC arrest no intubation according to the . #4 essential hypertension Charges/Coding Visit Charges Inpatient E&M: 96738 Subs Hosp L2
[2020-11-13] MEDS: traZODone 50 MG Tablet PO (20:13)
[2020-11-13] MEDS: Metoprolol Tartrate 25 MG Tablet PO (20:13)
[2020-11-13] MEDS: Acetaminophen 325 MG Tablet 650 MG PO (20:13)
[2020-11-13] MEDS: OLANZapine 2.5 MG Tablet PO (20:13)
[2020-11-14] VITALS (11 sets, daily range): BP systolic 128–195; BP diastolic 52–80; PULSE 50–85; RESP 16–20; TEMP 34.9–36.1; O2SAT 92–99
[2020-11-14 08:18] LABS: Absolute Lymphocyte Count 1.17 X10^3/uL (0.83-4.51); Absolute Neutrophil Count 2.6 X10^3/uL (2.0-7.7); Basophil# 0.01 X10^3/uL; Basophil% 0.2 % (0-1); Hematocrit 48.1 % (37-47); Hemoglobin 16.6 g/dL (12.0-15.0); Lymphocyte # 1.17 X10^3/ul (0.83-4.51); Lymphocyte % 25.9 % (19-41); Mean Corp Hgb Conc 34.5 g/dL (32-36); Mean Corpuscular Volume 92.9 fL (81-99); Mean Platelet Vol. 12.2 fl (6.2-12.0); Monocyte# 0.69 X10^3/uL; Monocyte% 15.3 % (0-10); NRBC Flagged by Analyzer 0 % (0-5); Neutrophil # 2.62 X10^3/uL (2.7-7.7); Neutrophil % 58.2 % (47-70); POSITIVE COUNT YES; Platelet Count 98 K/mm3 (150-450); RBC Distribution Width CV 12.5 % (11.6-14.6); RBC Distribution Width SD 43.1 fl (35.1-43.9); Red Blood Count 5.18 M/mm3 (4.2-5.4); White Blood Count 4.5 K/mm3 (4.4-11.0)
[2020-11-14 08:39] LABS: ALB/GLOB Ratio 0.5 RATIO (0.9-2.4); AST(SGOT) 40 U/L (15-37); Alanine Aminotransfer ALT/SGPT 27 U/L (13-56); Albumin, Serum 2.5 g/dL (3.2-5.0); Alkaline Phosphatase 70 U/L (45-117); Anion Gap 3 (5-15); BUN 20 mg/dL (7-18); BUN/Creat Ratio 31.5 RATIO (10-20); Calcium,Total 8.2 mg/dL (8.5-10.1); Chloride 101 mmol/L (98-107); Creatinine, Serum 0.64 mg/dL (0.55-1.02); EST Glomerular Filtration Rate 97 mL/min (>60); Est Glom Filt Rate - Afr Amer 118 mL/min (>60); Estimated Creatinine Clearance 41.45 ml/min; Globulin 4.6 g/dL (2.2-4.2); Glucose 114 mg/dL (74-106); Potassium 4.6 mmol/L (3.5-5.1); Protein, Total 7.1 g/dL (6.4-8.2); Sodium Level 132 mmol/L (136-145)
[2020-11-14] MEDS: 0.9% Saline Lock 10 ML Syringe IV ×2 (09:22→13:11)
[2020-11-14] MEDS: Ceftriaxone 1 GM/50 ML BAG IV (09:22)
[2020-11-14] MEDS: Metoprolol Tartrate 25 MG Tablet PO (09:22)
[2020-11-14] MEDS: dexAMETHasone 4 MG Tablet 6 MG PO (09:23)
[2020-11-14] MEDS: Aspirin 81 MG TAB.CHEW PO (09:23)
[2020-11-14] MEDS: amLODIPine 2.5 MG Tablet PO (09:23)
[2020-11-14] MEDS: Citalopram 20 MG Tablet PO (09:23)
[2020-11-14] MEDS: Enoxaparin 40 MG/0.4 ML Syringe SC (13:11)
--- NOTE | 2020-11-14 17:20 | PCM.PN.HOSP ---
Subjective Subjective Patient was seen and examined today, she voices no complaints of any shortness of breath, she is on nasal cannula oxygen at this time. Objective Data Objective Data Vital Signs: Vital Signs Temp Pulse Resp BP Pulse Ox 96.6 F L 50 L 18 128/52 H 96 11/14/20 15:32 11/14/20 15:35 11/14/20 15:32 11/14/20 15:32 11/14/20 15:32 Oxygen Flow Rate (L/min) 3 Oxygen Delivery Method Nasal Cannula Weight: 57.209 kg Body Mass Index (BMI) 22.3 Intake & Output: Intake and Output for Last 24 Hours 11/12/20 11/13/20 11/14/20 23:59 23:59 23:59 Intake Total 1950 / 1949 1000 / 1000 300 / 300 Output Total / 2 / Balance 1948 / 1947 998 / 998 300 / 300 Lab / Micro Data Result Diagrams: 11/14/20 08:00 11/14/20 08:00 Labs: Laboratory Results - last 24 hr 11/14/20 08:00: WBC 4.5, RBC 5.18, Hgb 16.6 H, Hct 48.1 H, MCV 92.9, MCH 32.0, MCHC 34.5, RDW Std Deviation 43.1, RDW Coeff of Rubens 12.5, Plt Count 98 L, MPV 12.2 H, Immature Gran % (Auto) 0.400, Neut % (Auto) 58.2, Lymph % (Auto) 25.9, [place] % (Auto) 15.3 H, Eos % (Auto) 0.0, Baso % (Auto) 0.2, Absolute Neuts (auto) 2.6, Absolute Lymphs (auto) 1.17, Nucleated RBC % 0 11/14/20 08:00: Sodium 132 L, Potassium 4.6, Chloride 101, Carbon Dioxide 28.0, Anion Gap 3 L, BUN 20 H, Creatinine 0.64, Estim Creat Clear Calc 41.45, Est GFR (MDRD) Af Amer 118, Est GFR (MDRD) Non-Af 97, BUN/Creatinine Ratio 31.5 H, Glucose 114 H, Calcium 8.2 L, Total Bilirubin 0.30, AST 40 H, ALT 27, Alkaline Phosphatase 70, Total Protein 7.1, Albumin 2.5 L, Globulin 4.6 H, Albumin/Globulin Ratio 0.5 L Micro: Microbiology 11/11/20 10:20 Urine, Catheterized Urine Culture - Final Presumptive E. coli 11/11/20 09:47 Nasal Secretion SARS-CoV-2 Antigen (Rapid) - Final SARS-CoV-2 (COVID 19) Physical Exam Const alert, no apparent distress and healthy appearing General Appearance: cooperative, well kempt and well developed Orientation / Consciousness: awake, oriented to person, oriented to place and oriented to time HEENT normocephalic, head/scalp atraumatic and moist oral mucous membranes Head and Scalp: normocephalic Eyes PERRL, EOMs intact bilaterally and conjunctivae normal Neck nuchal rigidity, supple, no JVD, thyroid normal and no carotid bruits General: trachea midline Resp normal respiratory effort and clear to auscultation bilaterally Auscultation: Negative for rales, rhonchi or wheezes Cardio regular rate, regular rhythm, S1 normal heart sound, S2 normal heart sound, no murmurs, no rub and no gallops GI normal to inspection, nondistended, normoactive bowel sounds, soft to palpation, non-tender and non-distended Extremity no clubbing, cyanosis or edema Skin no rashes or lesions noted, no wounds and skin turgor normal General Skin Exam: no breakdown Neuro CN's II-XII intact bilaterally, no focal motor deficits and no sensory deficits noted Neuro Narrative: Patient is pleasantly confused Sensorium / Orientation: awake and alert Speech: speech normal Psych thought process normal Psych Narrative: Patient is pleasantly confused Assessment & Plan Assessment/Plan (1) COVID-19: PLAN: 1. COVID-19 pneumonia-continue dexamethasone and remdesivir-day #4 #2 acute hypoxic respiratory failure secondary to #1-patient is on supplemental oxygen, pulse ox will be monitored #3 acute cystitis secondary to E. coli-I will transition the patient over to oral antibiotics #3 Alzheimer's dementia-patient is a DNR CC arrest no intubation according to the . #4 essential hypertension Charges/Coding Visit Charges Inpatient E&M: 74987 Subs Hosp L2
[2020-11-14] MEDS: traZODone 50 MG Tablet PO (22:50)
[2020-11-14] MEDS: OLANZapine 2.5 MG Tablet PO (22:50)
[2020-11-15] VITALS (13 sets, daily range): BP systolic 138–165; BP diastolic 64–93; PULSE 56–80; RESP 16–20; TEMP 35.2–36.6; O2SAT 86–96
[2020-11-15 07:22] LABS: Absolute Lymphocyte Count 1.06 X10^3/uL (0.83-4.51); Absolute Neutrophil Count 2.6 X10^3/uL (2.0-7.7); Basophil# 0.01 X10^3/uL; Basophil% 0.2 % (0-1); Hematocrit 50.3 % (37-47); Hemoglobin 16.7 g/dL (12.0-15.0); Lymphocyte # 1.06 X10^3/ul (0.83-4.51); Lymphocyte % 24.7 % (19-41); Mean Corp Hgb Conc 33.2 g/dL (32-36); Mean Corpuscular Hgb 31.6 pg (27.0-32.0); Mean Corpuscular Volume 95.3 fL (81-99); Mean Platelet Vol. 12.3 fl (6.2-12.0); Monocyte# 0.58 X10^3/uL; Monocyte% 13.5 % (0-10); NRBC Flagged by Analyzer 0 % (0-5); Neutrophil # 2.62 X10^3/uL (2.7-7.7); Neutrophil % 61.1 % (47-70); Platelet Count 100 K/mm3 (150-450); RBC Distribution Width CV 12.3 % (11.6-14.6); RBC Distribution Width SD 43.8 fl (35.1-43.9); Red Blood Count 5.28 M/mm3 (4.2-5.4); White Blood Count 4.3 K/mm3 (4.4-11.0)
[2020-11-15 08:10] LABS: ALB/GLOB Ratio 0.5 RATIO (0.9-2.4); AST(SGOT) 49 U/L (15-37); Alanine Aminotransfer ALT/SGPT 48 U/L (13-56); Albumin, Serum 2.6 g/dL (3.2-5.0); Alkaline Phosphatase 99 U/L (45-117); Anion Gap 8 (5-15); BUN 23 mg/dL (7-18); BUN/Creat Ratio 40.7 RATIO (10-20); Calcium,Total 8.4 mg/dL (8.5-10.1); Chloride 98 mmol/L (98-107); Creatinine, Serum 0.56 mg/dL (0.55-1.02); EST Glomerular Filtration Rate 112 mL/min (>60); Est Glom Filt Rate - Afr Amer 135 mL/min (>60); Estimated Creatinine Clearance 41.45 ml/min; Globulin 5.3 g/dL (2.2-4.2); Glucose 237 mg/dL (74-106); Potassium 4.6 mmol/L (3.5-5.1); Protein, Total 7.9 g/dL (6.4-8.2); Sodium Level 128 mmol/L (136-145)
[2020-11-15] MEDS: 0.9% Saline Lock 10 ML Syringe IV ×2 (09:34→11:27)
[2020-11-15] MEDS: Metoprolol Tartrate 25 MG Tablet PO (09:34)
[2020-11-15] MEDS: Enoxaparin 40 MG/0.4 ML Syringe SC (09:34)
[2020-11-15] MEDS: amLODIPine 2.5 MG Tablet PO (09:34)
[2020-11-15] MEDS: dexAMETHasone 4 MG Tablet 6 MG PO (09:35)
[2020-11-15] MEDS: Cephalexin 500 MG Capsule PO ×2 (09:35→20:20)
[2020-11-15] MEDS: Citalopram 20 MG Tablet PO (09:36)
[2020-11-15] MEDS: Aspirin 81 MG TAB.CHEW PO (09:36)
--- NOTE | 2020-11-15 17:57 | PN.HOSP_ITS ---
Subjective Subjective Patient was seen and examined today, I talked with her who was in the room at the time of my examination. Patient requires 6 L of oxygen while ambulating, due to this high oxygen requirement, I have elected to keep the patient in the hospital and recheck her tomorrow to see if she can go home on supplemental oxygen. Objective Data Objective Data Vital Signs: Vital Signs Temp Pulse Resp BP Pulse Ox 97.4 F L 71 20 H 165/83 H 94 11/15/20 13:53 11/15/20 13:53 11/15/20 13:53 11/15/20 13:53 11/15/20 17:43 Oxygen Flow Rate (L/min) [ 6 AMBULATING with Oxygen #1] Oxygen Flow Rate (L/min) 4 Oxygen Delivery Method Nasal Cannula Weight: 57.209 kg Body Mass Index (BMI) 22.3 Intake & Output: Intake and Output for Last 24 Hours 11/13/20 11/14/20 11/15/20 23:59 23:59 23:59 Intake Total 1000 / 1000 300 / 700 850 / 850 Output Total 2 / 2 Balance 998 / 998 300 / 700 850 / 850 Lab / Micro Data Result Diagrams: 11/15/20 06:45 11/15/20 06:45 Labs: Laboratory Results - last 24 hr 11/15/20 06:45: WBC 4.3 L, RBC 5.28, Hgb 16.7 H, Hct 50.3 H, MCV 95.3, MCH 31.6, MCHC 33.2, RDW Std Deviation 43.8, RDW Coeff of Rubens 12.3, Plt Count 100 L, MPV 12.3 H, Immature Gran % (Auto) 0.500, Neut % (Auto) 61.1, Lymph % (Auto) 24.7, [place] % (Auto) 13.5 H, Eos % (Auto) 0.0, Baso % (Auto) 0.2, Absolute Neuts (auto) 2.6, Absolute Lymphs (auto) 1.06, Nucleated RBC % 0 11/15/20 06:45: Sodium 128 L, Potassium 4.6, Chloride 98, Carbon Dioxide 22.0, Anion Gap 8, BUN 23 H, Creatinine 0.56, Estim Creat Clear Calc 41.45, Est GFR (MDRD) Af Amer 135, Est GFR (MDRD) Non-Af 112, BUN/Creatinine Ratio 40.7 H, Glucose 237 H, Calcium 8.4 L, Total Bilirubin 0.40, AST 49 H, ALT 48, Alkaline Phosphatase 99, Total Protein 7.9, Albumin 2.6 L, Globulin 5.3 H, Albumin/Globulin Ratio 0.5 L Micro: Microbiology 11/11/20 10:20 Urine, Catheterized Urine Culture - Final Presumptive E. coli 11/11/20 09:47 Nasal Secretion SARS-CoV-2 Antigen (Rapid) - Final SARS-CoV-2 (COVID 19) Physical Exam Const alert, no apparent distress and average body habitus Constitutional Narrative: Patient is alert but confused General Appearance: cooperative, well kempt and well developed Orientation / Consciousness: awake, oriented to person, oriented to place and oriented to time HEENT normocephalic, head/scalp atraumatic and moist oral mucous membranes Head and Scalp: normocephalic Eyes PERRL, EOMs intact bilaterally and conjunctivae normal Neck nuchal rigidity, supple, no JVD, thyroid normal and no carotid bruits General: trachea midline Resp normal respiratory effort, no retractions, no use of accessory muscles and clear to auscultation bilaterally Auscultation: Negative for rales, rhonchi or wheezes Cardio regular rate, regular rhythm, S1 normal heart sound, S2 normal heart sound, no murmurs, no rub and no gallops GI normal to inspection, nondistended, normoactive bowel sounds, soft to palpation, non-tender and non-distended Extremity normal to inspection and no clubbing, cyanosis or edema Skin no rashes or lesions noted General Skin Exam: no breakdown Neuro CN's II-XII intact bilaterally, no focal motor deficits and no sensory deficits noted Sensorium / Orientation: awake and alert Speech: speech normal Psych thought process normal Psych Narrative: Patient is alert but pleasantly confused Assessment & Plan Assessment/Plan (1) COVID-19: PLAN: 1. COVID-19 pneumonia-continue dexamethasone, patient finished her remdesivir today. #2 acute hypoxic respiratory failure secondary to #1-patient is on supplemental oxygen, pulse ox will be monitored, if the patient's ambulatory oxygen requirement is less than 6 L, she could be discharged home tomorrow, patient does not leave her home according to her , and she ambulates very little around her home. #3 acute cystitis secondary to E. coli-patient is currently on Keflex-she will need 2 more days of Keflex. #3 Alzheimer's dementia-patient is a DNR CC arrest no intubation according to the . #4 essential hypertension Charges/Coding Visit Charges Inpatient E&M: 76251 Subs Hosp L2
[2020-11-15] MEDS: OLANZapine 2.5 MG Tablet PO (20:20)
[2020-11-15] MEDS: traZODone 50 MG Tablet PO (20:20)
--- NOTE | 2020-11-15 22:48 | PCS.PANDOC ---
PANDEMIC DOCUMENTATION INITIATED: Date: 10/05/2020 Time: 190
[2020-11-16] VITALS (12 sets, daily range): BP systolic 131–196; BP diastolic 64–82; PULSE 51–65; RESP 18; TEMP 36.3–36.6; O2SAT 86–95
[2020-11-16 06:09] LABS: Absolute Lymphocyte Count 0.99 X10^3/uL (0.83-4.51); Absolute Neutrophil Count 3.2 X10^3/uL (2.0-7.7); Basophil# 0.02 X10^3/uL; Basophil% 0.4 % (0-1); Hematocrit 51.6 % (37-47); Hemoglobin 17.1 g/dL (12.0-15.0); Lymphocyte # 0.99 X10^3/ul (0.83-4.51); Lymphocyte % 20.6 % (19-41); Mean Corp Hgb Conc 33.1 g/dL (32-36); Mean Corpuscular Volume 96.4 fL (81-99); Mean Platelet Vol. 12.4 fl (6.2-12.0); Monocyte% 12.5 % (0-10); NRBC Flagged by Analyzer 0 % (0-5); Neutrophil # 3.17 X10^3/uL (2.7-7.7); Neutrophil % 66.1 % (47-70); POSITIVE COUNT YES; Platelet Count 68 K/mm3 (150-450); RBC Distribution Width CV 12.5 % (11.6-14.6); RBC Distribution Width SD 44.8 fl (35.1-43.9); Red Blood Count 5.35 M/mm3 (4.2-5.4); White Blood Count 4.8 K/mm3 (4.4-11.0)
[2020-11-16 06:33] LABS: ALB/GLOB Ratio 0.5 RATIO (0.9-2.4); AST(SGOT) 45 U/L (15-37); Alanine Aminotransfer ALT/SGPT 54 U/L (13-56); Albumin, Serum 2.5 g/dL (3.2-5.0); Alkaline Phosphatase 98 U/L (45-117); Anion Gap 8 (5-15); BUN 28 mg/dL (7-18); BUN/Creat Ratio 38.4 RATIO (10-20); Calcium,Total 8.2 mg/dL (8.5-10.1); Chloride 101 mmol/L (98-107); Creatinine, Serum 0.73 mg/dL (0.55-1.02); EST Glomerular Filtration Rate 83 mL/min (>60); Est Glom Filt Rate - Afr Amer 100 mL/min (>60); Estimated Creatinine Clearance 41.45 ml/min; Glucose 318 mg/dL (74-106); Potassium 4.9 mmol/L (3.5-5.1); Protein, Total 7.5 g/dL (6.4-8.2); Sodium Level 134 mmol/L (136-145)
[2020-11-16 06:46] LABS: Differential Indicated SCAN CRITERIA MET
[2020-11-16 07:46] LABS: Platelet Estimate MKD DEC (ADEQ)
[2020-11-16] MEDS: dexAMETHasone 4 MG Tablet 6 MG PO (12:14)
[2020-11-16] MEDS: Aspirin 81 MG TAB.CHEW PO (12:14)
[2020-11-16] MEDS: Citalopram 20 MG Tablet PO (12:14)
[2020-11-16] MEDS: Metoprolol Tartrate 25 MG Tablet PO (12:15)
[2020-11-16] MEDS: Cephalexin 500 MG Capsule PO ×2 (12:15→22:41)
[2020-11-16] MEDS: amLODIPine 2.5 MG Tablet PO (12:16)
[2020-11-16] MEDS: Enoxaparin 40 MG/0.4 ML Syringe SC (14:36)
--- NOTE | 2020-11-16 19:04 | PCM.PN.HOSP ---
Subjective Subjective Confused with severe dementia. She knows she is in [facility] but she thinks he is here because she is and the year is 7:00 Objective Data Objective Data Vital Signs: Vital Signs Temp Pulse Resp BP Pulse Ox 97.8 F 61 18 135/69 H 94 11/16/20 14:31 11/16/20 14:31 11/16/20 14:31 11/16/20 14:31 11/16/20 14:31 Oxygen Flow Rate (L/min) [ 6 AMBULATING with Oxygen #2] Oxygen Flow Rate (L/min) [ 4 AMBULATING with Oxygen #1] Oxygen Flow Rate (L/min) [At 4 REST with Oxygen] Oxygen Flow Rate (L/min) 6 Oxygen Delivery Method Nasal Cannula Weight: 126 lb 2 oz Body Mass Index (BMI) 22.3 Intake & Output: Intake and Output for Last 24 Hours 11/15/20 11/16/20 11/17/20 03:59 03:59 03:59 Intake Total 700 / 700 850 / 850 300 / 300 Balance 700 / 700 850 / 850 300 / 300 Lab / Micro Data Result Diagrams: 11/16/20 05:35 11/16/20 05:35 Labs: Laboratory Results - last 24 hr 11/16/20 05:35: WBC 4.8, RBC 5.35, Hgb 17.1 H, Hct 51.6 H, MCV 96.4, MCH 32.0, MCHC 33.1, RDW Std Deviation 44.8 H, RDW Coeff of Rubens 12.5, Plt Count 68 L, MPV 12.4 H, Immature Gran % (Auto) 0.400, Neut % (Auto) 66.1, Lymph % (Auto) 20.6, [place] % (Auto) 12.5 H, Eos % (Auto) 0.0, Baso % (Auto) 0.4, Absolute Neuts (auto) 3.2, Absolute Lymphs (auto) 0.99, Nucleated RBC % 0, Platelet Estimate MKD 11/16/20 05:35: Sodium 134 L, Potassium 4.9, Chloride 101, Carbon Dioxide 25.0, Anion Gap 8, BUN 28 H, Creatinine 0.73, Estim Creat Clear Calc 41.45, Est GFR (MDRD) Af Amer 100, Est GFR (MDRD) Non-Af 83, BUN/Creatinine Ratio 38.4 H, Glucose 318 H, Calcium 8.2 L, Total Bilirubin 0.40, AST 45 H, ALT 54, Alkaline Phosphatase 98, Total Protein 7.5, Albumin 2.5 L, Globulin 5.0 H, Albumin/Globulin Ratio 0.5 L Micro: Microbiology 11/11/20 10:00 Blood Culture (Wb) - Left Wrist Blood Culture - Final No growth in 5 days. 11/11/20 10:08 Blood Culture (Wb) - Right Wrist Blood Culture - Final No growth in 5 days. 11/11/20 10:20 Urine, Catheterized Urine Culture - Final Presumptive E. coli 11/11/20 09:47 Nasal Secretion SARS-CoV-2 Antigen (Rapid) - Final SARS-CoV-2 (COVID 19) Physical Exam Const alert and no apparent distress General Appearance: cooperative Orientation / Consciousness: oriented to person and oriented to place HEENT normocephalic and moist oral mucous membranes Eyes PERRL, EOMs intact bilaterally and conjunctivae normal Neck supple and no JVD Resp normal respiratory effort, no retractions, no use of accessory muscles and clear to auscultation bilaterally Auscultation: Negative for crackles, rales, rhonchi or wheezes Cardio regular rate, regular rhythm, S1 normal heart sound, S2 normal heart sound and no murmurs GI soft to palpation, non-tender and non-distended; Negative for hepatosplenomegaly Extremity no clubbing, cyanosis or edema Skin no rashes or lesions noted Neuro no focal motor deficits and no sensory deficits noted Psych affect normal Appearance: appropriate Thought Process: confused Assessment & Plan Assessment/Plan (1) COVID-19: (2) Acute respiratory failure with hypoxia: (3) Acute UTI: PLAN: 1. Acute hypoxic respiratory failure secondary to COVID-19 pneumonia -Completed remdesivir -Continue with Decadron -Currently requiring 6 L nasal cannula at rest will ambulate in the morning and will continue to monitor. -She is unvaccinated but her who is the only person sure she interacts with is vaccinated 2. Acute UTI due to a pansensitive E. coli -Improving on Keflex -We will finish tomorrow 3. HTN/HLD -Blood pressures are stable -Continue with her home medications and aspirin 4. DM2 -Hold Metformin, monitor Accu-Cheks AC at bedtime -Sliding scale insulin, adjust as necessary. 5. Advanced dementia -Alzheimer's -Olanzapine at night for DVT: Lovenox Charges/Coding Visit Charges Inpatient E&M: 44507 Subs Hosp L2
[2020-11-16] MEDS: Insulin Lispro 100 UNIT/ML INSULN.PEN SC (22:39)
[2020-11-16] MEDS: OLANZapine 2.5 MG Tablet PO (22:41)
[2020-11-16] MEDS: traZODone 50 MG Tablet PO (22:41)
[2020-11-17] VITALS (9 sets, daily range): BP systolic 139–159; BP diastolic 59–76; PULSE 46–80; RESP 18–20; TEMP 35.8–36.6; O2SAT 91–96
[2020-11-17] MEDS: Insulin Lispro 100 UNIT/ML INSULN.PEN SC ×4 (05:52→20:55)
[2020-11-17 06:16] LABS: Bedside Glucose 327 mg/dL (70-110)
[2020-11-17 07:09] LABS: Absolute Lymphocyte Count 0.93 X10^3/uL (0.83-4.51); Basophil# 0.01 X10^3/uL; Basophil% 0.2 % (0-1); Hematocrit 49.9 % (37-47); Hemoglobin 16.7 g/dL (12.0-15.0); Lymphocyte # 0.93 X10^3/ul (0.83-4.51); Mean Corp Hgb Conc 33.5 g/dL (32-36); Mean Corpuscular Volume 95.6 fL (81-99); Mean Platelet Vol. 12.1 fl (6.2-12.0); Monocyte# 0.54 X10^3/uL; Monocyte% 9.9 % (0-10); NRBC Flagged by Analyzer 0 % (0-5); Neutrophil # 3.96 X10^3/uL (2.7-7.7); Neutrophil % 72.2 % (47-70); Platelet Count 115 K/mm3 (150-450); RBC Distribution Width CV 12.5 % (11.6-14.6); RBC Distribution Width SD 44.2 fl (35.1-43.9); Red Blood Count 5.22 M/mm3 (4.2-5.4); White Blood Count 5.5 K/mm3 (4.4-11.0)
[2020-11-17 07:56] LABS: Anion Gap 6 (5-15); BUN 30 mg/dL (7-18); Calcium,Total 8.8 mg/dL (8.5-10.1); Chloride 103 mmol/L (98-107); Creatinine, Serum 0.65 mg/dL (0.55-1.02); EST Glomerular Filtration Rate 95 mL/min (>60); Est Glom Filt Rate - Afr Amer 114 mL/min (>60); Estimated Creatinine Clearance 41.45 ml/min; Glucose 320 mg/dL (74-106); Potassium 5.1 mmol/L (3.5-5.1); Sodium Level 134 mmol/L (136-145)
[2020-11-17 09:41] LABS: Bedside Glucose > 500 mg/dL (70-110)
[2020-11-17 09:41] LABS: Bedside Glucose 466 mg/dL (70-110)
[2020-11-17] MEDS: Aspirin 81 MG TAB.CHEW PO (10:23)
[2020-11-17] MEDS: dexAMETHasone 4 MG Tablet 6 MG PO (10:23)
[2020-11-17] MEDS: Citalopram 20 MG Tablet PO (10:23)
[2020-11-17] MEDS: Enoxaparin 40 MG/0.4 ML Syringe SC (10:24)
[2020-11-17] MEDS: Metoprolol Tartrate 25 MG Tablet PO ×2 (10:24→20:58)
[2020-11-17] MEDS: Cephalexin 500 MG Capsule PO ×2 (10:24→20:59)
[2020-11-17] MEDS: amLODIPine 2.5 MG Tablet PO (10:25)
[2020-11-17 11:35] LABS: Bedside Glucose 353 mg/dL (70-110)
--- NOTE | 2020-11-17 16:39 | PN.HOSP_ITS ---
Subjective Subjective No issues overnight, still on 6 L nasal cannula. Still pleasantly confused Objective Data Objective Data Vital Signs: Vital Signs Temp Pulse Resp BP Pulse Ox 97.8 F 80 18 139/59 H 91 11/17/20 10:11 11/17/20 10:24 11/17/20 10:11 11/17/20 10:11 11/17/20 10:33 Oxygen Flow Rate (L/min) [ 6 AMBULATING with Oxygen #2] Oxygen Flow Rate (L/min) [ 4 AMBULATING with Oxygen #1] Oxygen Flow Rate (L/min) [At 4 REST with Oxygen] Oxygen Flow Rate (L/min) 6 Oxygen Delivery Method Nasal Cannula Weight: 126 lb 2 oz Body Mass Index (BMI) 22.3 Intake & Output: Intake and Output for Last 24 Hours 11/16/20 11/17/20 11/18/20 03:59 03:59 03:59 Intake Total 850 / 850 300 / 300 Balance 850 / 850 300 / 300 Lab / Micro Data Result Diagrams: 11/18/20 07:10 11/18/20 07:10 Labs: Laboratory Results - last 24 hr 11/16/20 21:50: POC Glucose > 500 H* 11/16/20 21:53: POC Glucose 466 H* 11/17/20 05:51: POC Glucose 327 H 11/17/20 06:55: WBC 5.5, RBC 5.22, Hgb 16.7 H, Hct 49.9 H, MCV 95.6, MCH 32.0, MCHC 33.5, RDW Std Deviation 44.2 H, RDW Coeff of Rubens 12.5, Plt Count 115 L, MPV 12.1 H, Immature Gran % (Auto) 0.700, Neut % (Auto) 72.2 H, Lymph % (Auto) 17.0 L, [place] % (Auto) 9.9, Eos % (Auto) 0.0, Baso % (Auto) 0.2, Absolute Neuts (auto) 4.0, Absolute Lymphs (auto) 0.93, Nucleated RBC % 0 11/17/20 06:56: Sodium 134 L, Potassium 5.1, Chloride 103, Carbon Dioxide 25.0, Anion Gap 6, BUN 30 H, Creatinine 0.65, Estim Creat Clear Calc 41.45, Est GFR (MDRD) Af Amer 114, Est GFR (MDRD) Non-Af 95, BUN/Creatinine Ratio 46.0 H, Glucose 320 H, Calcium 8.8 11/17/20 11:12: POC Glucose 353 H Micro: Microbiology 11/11/20 10:00 Blood Culture (Wb) - Left Wrist Blood Culture - Final No growth in 5 days. 11/11/20 10:08 Blood Culture (Wb) - Right Wrist Blood Culture - Final No growth in 5 days. 11/11/20 10:20 Urine, Catheterized Urine Culture - Final Presumptive E. coli 11/11/20 09:47 Nasal Secretion SARS-CoV-2 Antigen (Rapid) - Final SARS-CoV-2 (COVID 19) Physical Exam Const alert and no apparent distress General Appearance: cooperative Orientation / Consciousness: oriented to person and oriented to place HEENT normocephalic and moist oral mucous membranes Eyes PERRL, EOMs intact bilaterally and conjunctivae normal Neck supple and no JVD Resp normal respiratory effort, no retractions, no use of accessory muscles and clear to auscultation bilaterally Auscultation: Negative for crackles, rales, rhonchi or wheezes Cardio regular rate, regular rhythm, S1 normal heart sound, S2 normal heart sound and no murmurs GI soft to palpation, non-tender and non-distended; Negative for hepatosplenomegaly Extremity no clubbing, cyanosis or edema Skin no rashes or lesions noted Neuro no focal motor deficits and no sensory deficits noted Psych affect normal Appearance: appropriate Thought Process: confused Assessment & Plan Assessment/Plan (1) COVID-19: (2) Acute respiratory failure with hypoxia: (3) Acute UTI: PLAN: 1. Acute hypoxic respiratory failure secondary to COVID-19 pneumonia -Completed remdesivir -Continue with Decadron -Currently requiring 6 L nasal cannula at rest -Unfortunately on her confusion unable to accurately measure output will provide with some Lasix today to see if that helps with her respiratory status and check creatinine in the morning -She is unvaccinated but her who is the only person sure she interacts with is vaccinated 2. Acute UTI due to a pansensitive E. coli -Improving on Keflex -We will finish tonight 3. HTN/HLD -Blood pressures are stable -Continue with her home medications and aspirin 4. DM2 -Hold Metformin, monitor Accu-Cheks AC at bedtime -Sliding scale insulin and long-acting insulin, adjust as necessary. 5. Advanced dementia -Alzheimer's -Olanzapine at night for DVT: Lovenox Charges/Coding Visit Charges Inpatient E&M: 23730 Subs Hosp L2
[2020-11-17 17:06] LABS: Bedside Glucose > 500 mg/dL (70-110)
[2020-11-17] MEDS: Insulin Lispro 100 UNIT/ML INSULN.PEN 10 UNIT SC (17:08)
[2020-11-17 17:55] LABS: Glucose 510 mg/dL (74-106)
[2020-11-17] MEDS: Furosemide 20 MG/2 ML VIAL IV (18:08)
[2020-11-17] MEDS: 0.9% Saline Lock 10 ML Syringe IV (18:09)
[2020-11-17] MEDS: OLANZapine 2.5 MG Tablet PO (20:59)
[2020-11-17] MEDS: traZODone 50 MG Tablet PO (20:59)
[2020-11-17 21:16] LABS: Bedside Glucose 341 mg/dL (70-110)
[2020-11-18] VITALS (7 sets, daily range): BP systolic 107–155; BP diastolic 39–73; PULSE 49–81; RESP 16–18; TEMP 36.4–36.6; O2SAT 81–100
[2020-11-18 06:16] LABS: Bedside Glucose 256 mg/dL (70-110)
[2020-11-18] MEDS: Insulin Lispro 100 UNIT/ML INSULN.PEN SC ×4 (07:05→23:11)
[2020-11-18 07:35] LABS: Absolute Lymphocyte Count 1.24 X10^3/uL (0.83-4.51); Absolute Neutrophil Count 6.1 X10^3/uL (2.0-7.7); Basophil# 0.02 X10^3/uL; Basophil% 0.2 % (0-1); Eosinophil# 0.01 X10^3/uL; Eosinophils% 0.1 % (0-5); Hematocrit 50.5 % (37-47); Hemoglobin 17.2 g/dL (12.0-15.0); Lymphocyte # 1.24 X10^3/ul (0.83-4.51); Lymphocyte % 14.7 % (19-41); Mean Corp Hgb Conc 34.1 g/dL (32-36); Mean Platelet Vol. 12.3 fl (6.2-12.0); Monocyte# 1.02 X10^3/uL; Monocyte% 12.1 % (0-10); NRBC Flagged by Analyzer 0 % (0-5); Neutrophil # 6.07 X10^3/uL (2.7-7.7); Platelet Count 123 K/mm3 (150-450); RBC Distribution Width CV 12.4 % (11.6-14.6); RBC Distribution Width SD 43.2 fl (35.1-43.9); Red Blood Count 5.37 M/mm3 (4.2-5.4); White Blood Count 8.4 K/mm3 (4.4-11.0)
[2020-11-18 08:18] LABS: Anion Gap 6 (5-15); BUN 37 mg/dL (7-18); BUN/Creat Ratio 56.5 RATIO (10-20); Calcium,Total 9.2 mg/dL (8.5-10.1); Chloride 101 mmol/L (98-107); Creatinine, Serum 0.66 mg/dL (0.55-1.02); EST Glomerular Filtration Rate 94 mL/min (>60); Est Glom Filt Rate - Afr Amer 114 mL/min (>60); Estimated Creatinine Clearance 41.45 ml/min; Glucose 197 mg/dL (74-106); Potassium 5.1 mmol/L (3.5-5.1); Sodium Level 134 mmol/L (136-145)
[2020-11-18] MEDS: Enoxaparin 40 MG/0.4 ML Syringe SC (09:55)
[2020-11-18] MEDS: Citalopram 20 MG Tablet PO (09:55)
[2020-11-18] MEDS: dexAMETHasone 4 MG Tablet 6 MG PO (09:55)
[2020-11-18] MEDS: amLODIPine 2.5 MG Tablet PO (09:55)
[2020-11-18] MEDS: Aspirin 81 MG TAB.CHEW PO (09:55)
[2020-11-18] MEDS: Metoprolol Tartrate 25 MG Tablet PO ×2 (10:01→22:18)
[2020-11-18] MEDS: Cephalexin 500 MG Capsule PO (10:02)
[2020-11-18 12:25] LABS: Bedside Glucose > 500 mg/dL (70-110)
--- NOTE | 2020-11-18 12:33 | CASEMGMT ---
SUSI AYALA made tc to pt to again discuss HHC once pt is dc'd. He states that pt has no difficulties in the home and he does not feel this is necessary. Made him aware that therapy is recommending additional therapy. He again declines. SUSI AYALA will continue to follow.
--- NOTE | 2020-11-18 13:55 | PCM.PN.HOSP ---
Subjective Subjective Remains confused, she knows she is in the hospital she knows who she is but cannot tell me which hospital or what year it is Objective Data Objective Data Vital Signs: Vital Signs Temp Pulse Resp BP Pulse Ox 97.9 F 81 18 107/39 L 81 11/18/20 10:07 11/18/20 10:07 11/18/20 10:07 11/18/20 10:07 11/18/20 10:27 Oxygen Flow Rate (L/min) [ 6 AMBULATING with Oxygen #2] Oxygen Flow Rate (L/min) [ 6 AMBULATING with Oxygen #1] Oxygen Flow Rate (L/min) [At 6 REST with Oxygen] Oxygen Flow Rate (L/min) 6 Oxygen Delivery Method Nasal Cannula Weight: 126 lb 2 oz Body Mass Index (BMI) 22.3 Intake & Output: Intake and Output for Last 24 Hours 11/17/20 11/18/20 11/19/20 03:59 03:59 03:59 Intake Total 300 / 300 Balance 300 / 300 Lab / Micro Data Result Diagrams: 11/18/20 07:10 11/18/20 07:10 Labs: Laboratory Results - last 24 hr 11/17/20 16:47: POC Glucose > 500 H* 11/17/20 17:10: Glucose 510 H* 11/17/20 20:55: POC Glucose 341 H 11/18/20 05:57: POC Glucose 256 H 11/18/20 07:10: WBC 8.4, RBC 5.37, Hgb 17.2 H, Hct 50.5 H, MCV 94.0, MCH 32.0, MCHC 34.1, RDW Std Deviation 43.2, RDW Coeff of Rubens 12.4, Plt Count 123 L, MPV 12.3 H, Immature Gran % (Auto) 0.900, Neut % (Auto) 72.0 H, Lymph % (Auto) 14.7 L, [place] % (Auto) 12.1 H, Eos % (Auto) 0.1, Baso % (Auto) 0.2, Absolute Neuts (auto) 6.1, Absolute Lymphs (auto) 1.24, Nucleated RBC % 0 11/18/20 07:10: Sodium 134 L, Potassium 5.1, Chloride 101, Carbon Dioxide 27.0, Anion Gap 6, BUN 37 H, Creatinine 0.66, Estim Creat Clear Calc 41.45, Est GFR (MDRD) Af Amer 114, Est GFR (MDRD) Non-Af 94, BUN/Creatinine Ratio 56.5 H, Glucose 197 H, Calcium 9.2 11/18/20 12:08: POC Glucose > 500 H* Micro: Microbiology 11/11/20 10:00 Blood Culture (Wb) - Left Wrist Blood Culture - Final No growth in 5 days. 11/11/20 10:08 Blood Culture (Wb) - Right Wrist Blood Culture - Final No growth in 5 days. 11/11/20 10:20 Urine, Catheterized Urine Culture - Final Presumptive E. coli 11/11/20 09:47 Nasal Secretion SARS-CoV-2 Antigen (Rapid) - Final SARS-CoV-2 (COVID 19) Physical Exam Const alert, no apparent distress and average body habitus General Appearance: cooperative Orientation / Consciousness: oriented to person and oriented to place HEENT normocephalic and moist oral mucous membranes Eyes PERRL, EOMs intact bilaterally and conjunctivae normal Neck supple and no JVD Resp normal respiratory effort, no retractions, no use of accessory muscles and clear to auscultation bilaterally Auscultation: Negative for crackles, rales, rhonchi or wheezes Cardio regular rate, regular rhythm, S1 normal heart sound, S2 normal heart sound and no murmurs GI soft to palpation, non-tender and non-distended; Negative for hepatosplenomegaly Extremity no clubbing, cyanosis or edema Skin no rashes or lesions noted Neuro no focal motor deficits and no sensory deficits noted Psych affect normal Appearance: appropriate Thought Process: confused Assessment & Plan Assessment/Plan (1) COVID-19: (2) Acute respiratory failure with hypoxia: (3) Acute UTI: PLAN: 1. Acute hypoxic respiratory failure secondary to COVID-19 pneumonia -Completed remdesivir -Continue with Decadron -Currently requiring 6 L nasal cannula at rest and with ambulation -Unfortunately on her confusion unable to accurately measure output will provide with some Lasix today to see if that helps with her respiratory status and check creatinine in the morning -Also repeat a chest x-ray in the morning as well as try to obtain a sputum culture -She is unvaccinated but her who is the only person sure she interacts with is vaccinated 2. Acute UTI due to a pansensitive E. coli -Improving on Keflex -Finished her Keflex today 3. HTN/HLD -Blood pressures are stable -Continue with her home medications and aspirin 4. DM2 -Hold Metformin, monitor Accu-Cheks AC at bedtime -Sliding scale insulin and long-acting insulin, adjust as necessary. 5. Advanced dementia -Alzheimer's -Olanzapine at night for DVT: Lovenox Charges/Coding Visit Charges Inpatient E&M: 96115 Subs Hosp L2
[2020-11-18] MEDS: Furosemide 20 MG/2 ML VIAL IV (15:49)
[2020-11-18] MEDS: 0.9% Saline Lock 10 ML Syringe IV (15:49)
[2020-11-18] MEDS: Insulin Lispro 100 UNIT/ML INSULN.PEN 10 UNIT SC ×2 (17:05→23:13)
[2020-11-18 17:07] LABS: Glucose 689 mg/dL (74-106)
[2020-11-18 17:20] LABS: Bedside Glucose > 500 mg/dL (70-110)
[2020-11-18] MEDS: traZODone 50 MG Tablet PO (22:17)
[2020-11-18] MEDS: OLANZapine 2.5 MG Tablet PO (22:18)
[2020-11-18 22:55] LABS: Bedside Glucose > 500 mg/dL (70-110)
[2020-11-19] VITALS (11 sets, daily range): BP systolic 121–142; BP diastolic 75–90; PULSE 55–80; RESP 16–18; TEMP 36.1–36.7; O2SAT 90–95
[2020-11-19 00:06] LABS: Bedside Glucose 417 mg/dL (70-110)
--- NOTE | 2020-11-19 05:55 | RAD_ITS ---
STUDY: X-RAY CHEST REASON FOR EXAM: Female, 75 years old. Continued Oxygen use TECHNIQUE: Portable, upright AP chest radiograph COMPARISON: 11/09/2020 FINDINGS: Mild residual infiltrates at the right lung base. Left lung appears clear. There is no demonstrated pleural abnormality. Normal size heart. Normal mediastinum and paulina. Normal visualized pulmonary arteries. There is atherosclerotic calcification of the aortic arch with tortuosity. There is demineralization of the osseous structures. There is degenerative osteoarthritis of the bilateral shoulders. There is no demonstrated abnormality of the visualized soft tissue structures of the upper abdomen. RAD/Chest 1 View (Portable) IMPRESSION: Mild residual infiltrates at the right lung base. Electronically Signed: Caden Jean MD at 5:54 EDT Tel , Service support ,
[2020-11-19] MEDS: Insulin Lispro 100 UNIT/ML INSULN.PEN SC ×4 (06:21→21:09)
[2020-11-19] MEDS: Insulin Lispro 100 UNIT/ML INSULN.PEN 10 UNIT SC ×2 (06:22→11:43)
[2020-11-19 06:30] LABS: Bedside Glucose 228 mg/dL (70-110)
[2020-11-19 07:30] LABS: Absolute Lymphocyte Count 0.98 X10^3/uL (0.83-4.51); Absolute Neutrophil Count 6.2 X10^3/uL (2.0-7.7); Basophil# 0.04 X10^3/uL; Basophil% 0.5 % (0-1); Eosinophil# 0.01 X10^3/uL; Eosinophils% 0.1 % (0-5); Hematocrit 51.5 % (37-47); Lymphocyte # 0.98 X10^3/ul (0.83-4.51); Lymphocyte % 11.8 % (19-41); Mean Corp Hgb Conc 35.1 g/dL (32-36); Mean Corpuscular Hgb 32.4 pg (27.0-32.0); Mean Corpuscular Volume 92.1 fL (81-99); Mean Platelet Vol. 11.9 fl (6.2-12.0); Monocyte# 0.92 X10^3/uL; Monocyte% 11.1 % (0-10); NRBC Flagged by Analyzer 0 % (0-5); Neutrophil # 6.19 X10^3/uL (2.7-7.7); Neutrophil % 74.7 % (47-70); Platelet Count 126 K/mm3 (150-450); RBC Distribution Width CV 12.3 % (11.6-14.6); RBC Distribution Width SD 42.2 fl (35.1-43.9); Red Blood Count 5.59 M/mm3 (4.2-5.4); White Blood Count 8.3 K/mm3 (4.4-11.0)
[2020-11-19 07:32] LABS: Differential Indicated SCAN CRITERIA MET; Hemoglobin 18.1 g/dL (12.0-15.0)
[2020-11-19 07:56] LABS: Anion Gap 8 (5-15); BUN 55 mg/dL (7-18); BUN/Creat Ratio 67.7 RATIO (10-20); Calcium,Total 8.5 mg/dL (8.5-10.1); Chloride 100 mmol/L (98-107); Creatinine, Serum 0.81 mg/dL (0.55-1.02); EST Glomerular Filtration Rate 73 mL/min (>60); Est Glom Filt Rate - Afr Amer 89 mL/min (>60); Estimated Creatinine Clearance 51.17 ml/min; Glucose 209 mg/dL (74-106); Potassium 4.2 mmol/L (3.5-5.1); Sodium Level 135 mmol/L (136-145)
[2020-11-19 08:23] LABS: Differential Comment SCANNED
[2020-11-19] MEDS: Citalopram 20 MG Tablet PO (09:44)
[2020-11-19] MEDS: Aspirin 81 MG TAB.CHEW PO (09:44)
[2020-11-19] MEDS: dexAMETHasone 4 MG Tablet 6 MG PO (09:44)
[2020-11-19] MEDS: amLODIPine 2.5 MG Tablet PO (09:44)
[2020-11-19] MEDS: Enoxaparin 40 MG/0.4 ML Syringe SC (09:45)
[2020-11-19] MEDS: Metoprolol Tartrate 25 MG Tablet PO ×2 (09:51→21:01)
[2020-11-19 12:50] LABS: Bedside Glucose 260 mg/dL (70-110)
--- NOTE | 2020-11-19 14:19 | PCM.PN.HOSP ---
Subjective Subjective Baseline confusion. States that she feels fine now that she is in the hospital does not respond to what the year is Objective Data Objective Data Vital Signs: Vital Signs Temp Pulse Resp BP Pulse Ox 97.0 F L 80 18 142/82 H 92 11/19/20 09:00 11/19/20 09:51 11/19/20 09:00 11/19/20 09:51 11/19/20 11:50 Oxygen Flow Rate (L/min) [ 6 AMBULATING with Oxygen #2] Oxygen Flow Rate (L/min) [ 6 AMBULATING with Oxygen #1] Oxygen Flow Rate (L/min) [At 6 REST with Oxygen] Oxygen Flow Rate (L/min) 6 Oxygen Delivery Method Nasal Cannula Weight: 126 lb 1.671 oz Body Mass Index (BMI) 22.3 Intake & Output: Intake and Output for Last 24 Hours 11/18/20 11/19/20 11/20/20 03:59 03:59 03:59 Intake Total 400 / 400 Balance 400 / 400 Lab / Micro Data Result Diagrams: 11/19/20 07:10 11/19/20 07:10 Labs: Laboratory Results - last 24 hr 11/18/20 15:54: POC Glucose > 500 H* 11/18/20 16:11: Glucose 689 H* 11/18/20 22:17: POC Glucose > 500 H* 11/18/20 23:56: POC Glucose 417 H 11/19/20 06:20: POC Glucose 228 H 11/19/20 07:10: WBC 8.3, RBC 5.59 H, Hgb 18.1 H*, Hct 51.5 H, MCV 92.1, MCH 32.4 H, MCHC 35.1, RDW Std Deviation 42.2, RDW Coeff of Rubens 12.3, Plt Count 126 L, MPV 11.9, Immature Gran % (Auto) 1.800 H, Neut % (Auto) 74.7 H, Lymph % (Auto) 11.8 L, [place] % (Auto) 11.1 H, Eos % (Auto) 0.1, Baso % (Auto) 0.5, Absolute Neuts (auto) 6.2, Absolute Lymphs (auto) 0.98, Nucleated RBC % 0, Differential Comment SCANNED, Diff Path Review June11/19/20 07:10: Sodium 135 L, Potassium 4.2, Chloride 100, Carbon Dioxide 27.0, Anion Gap 8, BUN 55 H, Creatinine 0.81, Estim Creat Clear Calc 51.17, Est GFR (MDRD) Af Amer 89, Est GFR (MDRD) Non-Af 73, BUN/Creatinine Ratio 67.7 H, Glucose 209 H, Calcium 8.5 11/19/20 11:41: POC Glucose 260 H Micro: Microbiology 11/11/20 10:00 Blood Culture (Wb) - Left Wrist Blood Culture - Final No growth in 5 days. 11/11/20 10:08 Blood Culture (Wb) - Right Wrist Blood Culture - Final No growth in 5 days. 11/11/20 10:20 Urine, Catheterized Urine Culture - Final Presumptive E. coli 11/11/20 09:47 Nasal Secretion SARS-CoV-2 Antigen (Rapid) - Final SARS-CoV-2 (COVID 19) Radiography Diagnostic Testing: Radiology Impression Chest X-Ray 11/19/20 05:55 IMPRESSION: Mild residual infiltrates at the right lung base. Electronically Signed: Caden Jean MD at 5:54 EDT Tel , Service support , Physical Exam Const alert, no apparent distress and average body habitus Constitutional Narrative: Patient is alert but confused General Appearance: cooperative Orientation / Consciousness: oriented to person and oriented to place HEENT normocephalic and moist oral mucous membranes Eyes PERRL, EOMs intact bilaterally and conjunctivae normal Neck supple and no JVD Resp normal respiratory effort, no retractions, no use of accessory muscles and clear to auscultation bilaterally Auscultation: Negative for crackles, rales, rhonchi or wheezes Cardio regular rate, regular rhythm, S1 normal heart sound, S2 normal heart sound and no murmurs GI soft to palpation, non-tender and non-distended; Negative for hepatosplenomegaly Extremity no clubbing, cyanosis or edema Skin no rashes or lesions noted Neuro no focal motor deficits and no sensory deficits noted Psych affect normal Appearance: appropriate Thought Process: confused Assessment & Plan Assessment/Plan (1) COVID-19: (2) Acute respiratory failure with hypoxia: (3) Acute UTI: PLAN: 1. Acute hypoxic respiratory failure secondary to COVID-19 pneumonia/erythrocytosis -Completed remdesivir -Continue with Decadron -Currently requiring 6 L nasal cannula at rest and with ambulation -Given the elevation in her hemoglobin, will hold her Lasix for today. It does not appear that we have made any progress in her respiratory status that is it is -Also repeat a chest x-ray in the morning as well as try to obtain a sputum culture -She is unvaccinated but her who is the only person sure she interacts with is vaccinated 2. Acute UTI secondary to pansensitive E. coli?resolved 3. HTN/HLD -Blood pressures are stable -Continue with her home medications and aspirin 4. DM2 -Hold Metformin, monitor Accu-Cheks AC at bedtime -Sliding scale insulin and long-acting insulin, adjust as necessary. 5. Advanced dementia -Alzheimer's -Olanzapine at night for DVT: Lovenox Charges/Coding Visit Charges Inpatient E&M: 92037 Subs Hosp L2
[2020-11-19] MEDS: Insulin Lispro 100 UNIT/ML INSULN.PEN 15 UNIT SC (16:45)
[2020-11-19 16:55] LABS: Bedside Glucose 342 mg/dL (70-110)
[2020-11-19] MEDS: OLANZapine 2.5 MG Tablet PO ×2 (21:00→21:01)
[2020-11-19] MEDS: traZODone 50 MG Tablet PO (21:00)
[2020-11-19 21:20] LABS: Bedside Glucose 295 mg/dL (70-110)
[2020-11-20] VITALS (12 sets, daily range): BP systolic 136–157; BP diastolic 62–110; PULSE 53–91; RESP 18–20; TEMP 36.1–36.7; O2SAT 86–98
[2020-11-20] MEDS: Insulin Lispro 100 UNIT/ML INSULN.PEN SC ×2 (06:11→22:14)
[2020-11-20] MEDS: Insulin Lispro 100 UNIT/ML INSULN.PEN 15 UNIT SC ×3 (06:12→17:33)
[2020-11-20 06:50] LABS: Bedside Glucose 222 mg/dL (70-110)
[2020-11-20 07:45] LABS: Hematocrit 53.2 % (37-47); Hemoglobin 17.3 g/dL (12.0-15.0); Mean Corp Hgb Conc 32.5 g/dL (32-36); Mean Corpuscular Hgb 31.6 pg (27.0-32.0); Mean Corpuscular Volume 97.1 fL (81-99); Mean Platelet Vol. 12.6 fl (6.2-12.0); POSITIVE MORPHOLOGY YES; Platelet Count 115 K/mm3 (150-450); RBC Distribution Width CV 12.5 % (11.6-14.6); RBC Distribution Width SD 45.2 fl (35.1-43.9); Red Blood Count 5.48 M/mm3 (4.2-5.4); White Blood Count 9.2 K/mm3 (4.4-11.0)
[2020-11-20 08:16] LABS: Differential Indicated MANUAL DIFF
[2020-11-20 08:18] LABS: Lymphocyte 19 % (19-41); Metamyelocyte 1 % (0-1); Monocyte 2 % (0-10); Neutrophil-Band 2 % (0-5); Neutrophil-Segmented 76 % (47-70); Platelet Estimate SLT DEC (ADEQ); Red Cell Morphology NORM C+C NORMAL (NORM C&C); Total Cells Counted 100 (MANUAL DIFF)
[2020-11-20 08:19] LABS: Absolute Lymphocyte Count 1.74 X10^3/uL (0.83-4.51); Absolute Neutrophil Count 7.2 X10^3/uL (2.0-7.7); Lymphocyte # 1.74 X10^3/ul (0.83-4.51); Neutrophil # 7.16 X10^3/uL (2.7-7.7)
[2020-11-20] MEDS: Citalopram 20 MG Tablet PO (08:52)
[2020-11-20] MEDS: Aspirin 81 MG TAB.CHEW PO (08:52)
[2020-11-20] MEDS: Enoxaparin 40 MG/0.4 ML Syringe SC (08:53)
[2020-11-20] MEDS: dexAMETHasone 4 MG Tablet 6 MG PO (08:53)
[2020-11-20] MEDS: Metoprolol Tartrate 25 MG Tablet PO (08:53)
[2020-11-20] MEDS: amLODIPine 2.5 MG Tablet PO (08:54)
--- NOTE | 2020-11-20 12:39 | CASEMGMT ---
Social Work Note Pt to likely to discharge home tomorrow. SW placed a call to Avel with [facility] and updated her. Aislinn Rowe [employer]MING [employer]OL SERVIC[employer], CARE TAKER
--- NOTE | 2020-11-20 13:13 | PN.HOSP_ITS ---
Subjective Subjective Doing well, no new issues overnight continues with her baseline dementia. She was able to ambulate on 3 L today at 93% Objective Data Objective Data Vital Signs: Vital Signs Temp Pulse Resp BP Pulse Ox 98.0 F 66 20 H 144/78 H 86 11/20/20 08:59 11/20/20 08:59 11/20/20 09:00 11/20/20 08:59 11/20/20 09:00 Oxygen Flow Rate (L/min) [ 6 AMBULATING with Oxygen #2] Oxygen Flow Rate (L/min) [ 3 AMBULATING with Oxygen #1] Oxygen Flow Rate (L/min) [At 3 REST with Oxygen] Oxygen Flow Rate (L/min) 3 Oxygen Delivery Method Nasal Cannula Weight: 126 lb 1.671 oz Body Mass Index (BMI) 22.3 Intake & Output: Intake and Output for Last 24 Hours 11/19/20 11/20/20 11/21/20 03:59 03:59 03:59 Intake Total 400 / 400 Balance 400 / 400 Lab / Micro Data Result Diagrams: 11/20/20 07:00 11/19/20 07:10 Labs: Laboratory Results - last 24 hr 11/19/20 16:44: POC Glucose 342 H 11/19/20 21:07: POC Glucose 295 H 11/20/20 06:11: POC Glucose 222 H 11/20/20 07:00: WBC 9.2, RBC 5.48 H, Hgb 17.3 H, Hct 53.2 H, MCV 97.1 D, MCH 31.6, MCHC 32.5 D, RDW Std Deviation 45.2 H, RDW Coeff of Rubens 12.5, Plt Count 115 L, MPV 12.6 H, Neut % (Auto) Not Reportable, Absolute Neuts (auto) 7.2, Absolute Lymphs (auto) 1.74, Total Counted 100, Neutrophils % (Manual) 76 H, Band Neutrophils % 2, Lymphocytes % (Manual) 19, Monocytes % (Manual) 2, Me tamyelocytes % 1, Platelet Estimate SLT DEC, RBC Morphology NORM C+C Micro: Microbiology 11/11/20 10:00 Blood Culture (Wb) - Left Wrist Blood Culture - Final No growth in 5 days. 11/11/20 10:08 Blood Culture (Wb) - Right Wrist Blood Culture - Final No growth in 5 days. 11/11/20 10:20 Urine, Catheterized Urine Culture - Final Presumptive E. coli 11/11/20 09:47 Nasal Secretion SARS-CoV-2 Antigen (Rapid) - Final SARS-CoV-2 (COVID 19) Physical Exam Narrative Const alert and no apparent distress Constitutional Narrative: Patient is alert but confused General Appearance: cooperative HEENT normocephalic and moist oral mucous membranes Eyes PERRL, EOMs intact bilaterally and conjunctivae normal Neck supple and no JVD Resp normal respiratory effort, no retractions, no use of accessory muscles and clear to auscultation bilaterally Auscultation: diminished lung sounds; Negative for crackles, rales, rhonchi or wheezes Cardio regular rate, regular rhythm, S1 normal heart sound, S2 normal heart sound, no murmurs, no rub and no gallops GI soft to palpation, non-tender and non-distended; Negative for hepatosplenomegaly Extremity General Extremity: clubbing; Negative for cyanosis or edema Skin no rashes or lesions noted General Skin Exam: no breakdown Neuro no focal motor deficits and no sensory deficits noted Neuro Narrative: Patient is pleasantly confused Psych Psych Narrative: Patient is alert but pleasantly confused Appearance: grossly normal Thought Process: confused Assessment & Plan Assessment/Plan (1) COVID-19: (2) Acute respiratory failure with hypoxia: (3) Acute UTI: PLAN: 1. Acute hypoxic respiratory failure secondary to COVID-19 pneumonia/erythrocytosis -Completed remdesivir -Continue with Decadron, last dose is tomorrow -Currently requiring 3 L nasal cannula at rest and with ambulation -Hemoglobin is trending down -Repeat chest x-ray shows interval improvement in her infiltrates -She is unvaccinated but her who is the only person sure she interacts with is vaccinated 2. Acute UTI secondary to pansensitive E. coli?resolved 3. HTN/HLD -Blood pressures are stable -Continue with her home medications and aspirin 4. DM2 -Hold Metformin, monitor Accu-Cheks AC at bedtime -Sliding scale insulin and long-acting insulin, adjust as necessary. 5. Advanced dementia -Alzheimer's -Olanzapine at night for DVT: Lovenox Charges/Coding Visit Charges Inpatient E&M: 47333 Subs Hosp L2
[2020-11-20 13:30] LABS: Pathologist Review Reviewed
--- NOTE | 2020-11-20 15:17 | NURSING ---
unable to collect abgs - [facility]PS in and poked pt 3 times with no blood sample able to be obtained. Dr. Noel informed. order cancelled
[2020-11-20 16:36] LABS: Bedside Glucose 114 mg/dL (70-110)
[2020-11-20] MEDS: Ondansetron 4 MG/2 ML Vial IV (21:56)
[2020-11-20] MEDS: traZODone 50 MG Tablet PO (22:17)
[2020-11-20 22:50] LABS: Bedside Glucose 270 mg/dL (70-110)
[2020-11-21] VITALS (13 sets, daily range): BP systolic 118–151; BP diastolic 64–92; PULSE 57–70; RESP 18–22; TEMP 36.4–37.3; O2SAT 89–100
[2020-11-21] MEDS: proCHLORPERazine 10 MG/2 ML Vial 5 MG IM (04:15)
[2020-11-21] MEDS: 0.9% Saline Lock 10 ML Syringe IV (04:16)
[2020-11-21 04:50] LABS: Bedside Glucose 133 mg/dL (70-110)
--- NOTE | 2020-11-21 08:55 | RAD_ITS ---
STUDY: X-RAY - ABDOMEN/PELVIS REASON FOR EXAM: Female, 75 years old. Emesis TECHNIQUE: Portable, AP abdomen radiograph COMPARISON: None. FINDINGS: Normal visualized lung bases. There is an unremarkable bowel gas pattern. There is no demonstrated free abdominal air. The visualized liver, spleen and kidneys are grossly normal in size and morphology. Heavily calcified aorta. Degenerative changes throughout the spine and both hips. RAD/Abd Decub and/or Erect(Portabl IMPRESSION: No acute abnormal finding in the abdomen or pelvis. Electronically Signed: Caden Jean MD at 22:23 EDT Tel , Service support ,
[2020-11-21] MEDS: amLODIPine 2.5 MG Tablet PO (09:10)
[2020-11-21] MEDS: Enoxaparin 40 MG/0.4 ML Syringe SC (09:10)
[2020-11-21] MEDS: dexAMETHasone 4 MG Tablet 6 MG PO (09:10)
[2020-11-21] MEDS: Aspirin 81 MG TAB.CHEW PO (09:10)
[2020-11-21] MEDS: Citalopram 20 MG Tablet PO (09:10)
[2020-11-21 09:28] LABS: Anion Gap 9 (5-15); BUN 24 mg/dL (7-18); BUN/Creat Ratio 42.3 RATIO (10-20); Calcium,Total 8.3 mg/dL (8.5-10.1); Chloride 90 mmol/L (98-107); Creatinine, Serum 0.57 mg/dL (0.55-1.02); EST Glomerular Filtration Rate 111 mL/min (>60); Est Glom Filt Rate - Afr Amer 134 mL/min (>60); Estimated Creatinine Clearance 41.45 ml/min; Glucose 94 mg/dL (74-106); Sodium Level 124 mmol/L (136-145)
[2020-11-21 11:31] LABS: Bedside Glucose 110 mg/dL (70-110)
[2020-11-21] MEDS: Magnesium Citrate 300 ML 150 ML PO (14:37)
--- NOTE | 2020-11-21 15:10 | PCM.PN.HOSP ---
Subjective Subjective Baseline dementia, had an episode of emesis and upon review a KUB was ordered which shows in my read stool does not appear that she has had any significant bowel movements during her hospitalization. Objective Data Objective Data Vital Signs: Vital Signs Temp Pulse Resp BP Pulse Ox 97.6 F L 63 18 118/92 H 95 11/21/20 14:38 11/21/20 14:38 11/21/20 14:38 11/21/20 14:38 11/21/20 14:38 Oxygen Flow Rate (L/min) [ 6 AMBULATING with Oxygen #2] Oxygen Flow Rate (L/min) [ 3 AMBULATING with Oxygen #1] Oxygen Flow Rate (L/min) [At 3 REST with Oxygen] Oxygen Flow Rate (L/min) 4 Oxygen Delivery Method Nasal Cannula Weight: 126 lb 1.671 oz Body Mass Index (BMI) 22.3 Intake & Output: Intake and Output for Last 24 Hours 11/20/20 11/21/20 11/22/20 03:59 03:59 03:59 Intake Total 400 / 400 Balance 400 / 400 Lab / Micro Data Result Diagrams: 11/20/20 07:00 11/21/20 08:40 Labs: Laboratory Results - last 24 hr 11/20/20 16:30: POC Glucose 114 H 11/20/20 22:13: POC Glucose 270 H 11/21/20 04:15: POC Glucose 133 H 11/21/20 08:40: Sodium 124 L, Potassium 5.0, Chloride 90 L, Carbon Dioxide 25.0, Anion Gap 9, BUN 24 H, Creatinine 0.57, Estim Creat Clear Calc 41.45, Est GFR (MDRD) Af Amer 134, Est GFR (MDRD) Non-Af 111, BUN/Creatinine Ratio 42.3 H, Glucose 94, Calcium 8.3 L 11/21/20 11:24: POC Glucose 110 Micro: Microbiology 11/11/20 10:00 Blood Culture (Wb) - Left Wrist Blood Culture - Final No growth in 5 days. 11/11/20 10:08 Blood Culture (Wb) - Right Wrist Blood Culture - Final No growth in 5 days. 11/11/20 10:20 Urine, Catheterized Urine Culture - Final Presumptive E. coli 11/11/20 09:47 Nasal Secretion SARS-CoV-2 Antigen (Rapid) - Final SARS-CoV-2 (COVID 19) Physical Exam Narrative Const alert and no apparent distress Constitutional Narrative: Patient is alert but confused General Appearance: cooperative HEENT normocephalic and moist oral mucous membranes Eyes PERRL, EOMs intact bilaterally and conjunctivae normal Neck supple and no JVD Resp normal respiratory effort, no retractions, no use of accessory muscles and clear to auscultation bilaterally Auscultation: diminished lung sounds; Negative for crackles, rales, rhonchi or wheezes Cardio regular rate, regular rhythm, S1 normal heart sound, S2 normal heart sound, no murmurs, no rub and no gallops GI soft to palpation, non-tender and non-distended; Negative for hepatosplenomegaly Extremity no clubbing, cyanosis or edema General Extremity: clubbing; Negative for cyanosis or edema Skin no rashes or lesions noted General Skin Exam: no breakdown Neuro no focal motor deficits and no sensory deficits noted Neuro Narrative: Patient is pleasantly confused Psych affect normal Appearance: grossly normal Thought Process: confused Assessment & Plan Assessment/Plan (1) COVID-19: (2) Acute respiratory failure with hypoxia: (3) Acute UTI: PLAN: 1. Acute hypoxic respiratory failure secondary to COVID-19 pneumonia/erythrocytosis/emesis possible constipation/hyponatremia -Completed remdesivir and Decadron -Currently requiring 3 L nasal cannula at rest and with ambulation -Hemoglobin is trending down -Repeat chest x-ray shows interval improvement in her infiltrates -She is unvaccinated but her who is the only person sure she interacts with is vaccinated -May be constipated, KUB shows stool currently awaiting radiology read. Will provide with some laxatives as it shows in documentation that she is having 1 bowel movement since she has been here -Sodium is currently dropping, will repeat BMP in the morning and monitor 2. Acute UTI secondary to pansensitive E. coli?resolved 3. HTN/HLD -Blood pressures are stable -Continue with her home medications and aspirin 4. DM2 -Hold Metformin, monitor Accu-Cheks AC at bedtime -Sliding scale insulin and long-acting insulin, adjust as necessary. 5. Advanced dementia -Alzheimer's -Olanzapine at night for DVT: Lovenox Charges/Coding Visit Charges Inpatient E&M: 40240 Subs Hosp L2
[2020-11-21] MEDS: Insulin Lispro 100 UNIT/ML INSULN.PEN SC (17:19)
[2020-11-21] MEDS: Insulin Lispro 100 UNIT/ML INSULN.PEN 15 UNIT SC (17:19)
[2020-11-21 23:11] LABS: Bedside Glucose 307 mg/dL (70-110)
[2020-11-21] MEDS: traZODone 50 MG Tablet PO (23:12)
[2020-11-21] MEDS: OLANZapine 2.5 MG Tablet PO (23:12)
[2020-11-22] VITALS (12 sets, daily range): BP systolic 114–140; BP diastolic 60–87; PULSE 61–94; RESP 16–20; TEMP 36.4–38; O2SAT 81–97
[2020-11-22 01:21] LABS: Bedside Glucose 235 mg/dL (70-110)
[2020-11-22 07:58] LABS: Absolute Lymphocyte Count 0.56 X10^3/uL (0.83-4.51); Absolute Neutrophil Count 7.2 X10^3/uL (2.0-7.7); Basophil# 0.03 X10^3/uL; Basophil% 0.4 % (0-1); Hematocrit 50.3 % (37-47); Hemoglobin 17.3 g/dL (12.0-15.0); Lymphocyte # 0.56 X10^3/ul (0.83-4.51); Lymphocyte % 6.8 % (19-41); Mean Corp Hgb Conc 34.4 g/dL (32-36); Mean Corpuscular Hgb 31.3 pg (27.0-32.0); Mean Platelet Vol. 12.3 fl (6.2-12.0); Monocyte# 0.37 X10^3/uL; Monocyte% 4.5 % (0-10); NRBC Flagged by Analyzer 0 % (0-5); Neutrophil # 7.17 X10^3/uL (2.7-7.7); Neutrophil % 87.1 % (47-70); POSITIVE COUNT YES; POSITIVE DIFFERENTIAL YES; Platelet Count 79 K/mm3 (150-450); RBC Distribution Width CV 12.6 % (11.6-14.6); RBC Distribution Width SD 42.2 fl (35.1-43.9); Red Blood Count 5.53 M/mm3 (4.2-5.4); White Blood Count 8.2 K/mm3 (4.4-11.0)
[2020-11-22 08:01] LABS: Differential Indicated SCAN CRITERIA MET
[2020-11-22 08:20] LABS: Anion Gap 7 (5-15); BUN 27 mg/dL (7-18); BUN/Creat Ratio 48.6 RATIO (10-20); Calcium,Total 8.4 mg/dL (8.5-10.1); Chloride 92 mmol/L (98-107); Creatinine, Serum 0.56 mg/dL (0.55-1.02); EST Glomerular Filtration Rate 114 mL/min (>60); Est Glom Filt Rate - Afr Amer 138 mL/min (>60); Estimated Creatinine Clearance 41.45 ml/min; Glucose 81 mg/dL (74-106); Potassium 4.9 mmol/L (3.5-5.1); Sodium Level 128 mmol/L (136-145)
[2020-11-22 08:46] LABS: Differential Comment SCANNED; Platelet Estimate MOD DEC (ADEQ); Platelet Morphology LARGE
[2020-11-22] MEDS: Enoxaparin 40 MG/0.4 ML Syringe SC (09:22)
[2020-11-22] MEDS: Polyethylene Glycol 3350 17 GM PACKET PO (09:23)
[2020-11-22] MEDS: Metoprolol Tartrate 25 MG Tablet PO (09:32)
[2020-11-22] MEDS: Aspirin 81 MG TAB.CHEW PO (09:32)
[2020-11-22] MEDS: Citalopram 20 MG Tablet PO (09:32)
[2020-11-22] MEDS: amLODIPine 2.5 MG Tablet PO (09:32)
[2020-11-22 10:46] LABS: Bedside Glucose 122 mg/dL (70-110)
--- NOTE | 2020-11-22 11:01 | PCM.PN.HOSP ---
Subjective Subjective No issues overnight, no further episodes of emesis. Maintaining her oxygen saturations on 4 to 5 L Objective Data Objective Data Vital Signs: Vital Signs Temp Pulse Resp BP Pulse Ox 97.6 F L 94 16 133/73 H 91 11/22/20 09:25 11/22/20 09:32 11/22/20 09:25 11/22/20 09:25 11/22/20 10:01 Oxygen Flow Rate (L/min) [ 6 AMBULATING with Oxygen #2] Oxygen Flow Rate (L/min) [ 3 AMBULATING with Oxygen #1] Oxygen Flow Rate (L/min) [At 3 REST with Oxygen] Oxygen Flow Rate (L/min) 5 Oxygen Delivery Method Nasal Cannula Weight: 126 lb 1.671 oz Body Mass Index (BMI) 22.3 Intake & Output: Intake and Output for Last 24 Hours 11/21/20 11/22/20 11/23/20 03:59 03:59 03:59 Intake Total 100 / 100 Balance 100 / 100 Lab / Micro Data Result Diagrams: 11/22/20 07:15 11/22/20 07:15 Labs: Laboratory Results - last 24 hr 11/21/20 11:24: POC Glucose 110 11/21/20 17:17: POC Glucose 307 H 11/21/20 21:21: POC Glucose 235 H 11/22/20 07:15: WBC 8.2, RBC 5.53 H, Hgb 17.3 H, Hct 50.3 H, MCV 91.0 D, MCH 31.3, MCHC 34.4 D, RDW Std Deviation 42.2, RDW Coeff of Rubens 12.6, Plt Count 79 L, MPV 12.3 H, Immature Gran % (Auto) 1.200 H, Neut % (Auto) 87.1 H, Lymph % (Auto) 6.8 L, [place] % (Auto) 4.5, Eos % (Auto) 0.0, Baso % (Auto) 0.4, Absolute Neuts (auto) 7.2, Absolute Lymphs (auto) 0.56 L, Nucleated RBC % 0, Differential Comment SCANNED, Platelet Estimate MOD DEC, Plt Morphology Comment LARGE 11/22/20 07:15: Sodium 128 L, Potassium 4.9, Chloride 92 L, Carbon Dioxide 29.0, Anion Gap 7, BUN 27 H, Creatinine 0.56, Estim Creat Clear Calc 41.45, Est GFR (MDRD) Af Amer 138, Est GFR (MDRD) Non-Af 114, BUN/Creatinine Ratio 48.6 H, Glucose 81, Calcium 8.4 L 11/22/20 09:20: POC Glucose 122 H Micro: Microbiology 11/11/20 10:00 Blood Culture (Wb) - Left Wrist Blood Culture - Final No growth in 5 days. 11/11/20 10:08 Blood Culture (Wb) - Right Wrist Blood Culture - Final No growth in 5 days. 11/11/20 10:20 Urine, Catheterized Urine Culture - Final Presumptive E. coli 11/11/20 09:47 Nasal Secretion SARS-CoV-2 Antigen (Rapid) - Final SARS-CoV-2 (COVID 19) Radiography Diagnostic Testing: Radiology Impression Abdomen X-Ray 11/21/20 08:55 IMPRESSION: No acute abnormal finding in the abdomen or pelvis. Electronically Signed: Caden Jean MD at 22:23 EDT Tel , Service support , Physical Exam Narrative Const alert and no apparent distress Constitutional Narrative: Patient is alert but confused General Appearance: cooperative Orientation / Consciousness: oriented to person and oriented to place HEENT normocephalic and moist oral mucous membranes Eyes PERRL, EOMs intact bilaterally and conjunctivae normal Neck supple and no JVD Resp normal respiratory effort, no retractions, no use of accessory muscles and clear to auscultation bilaterally Auscultation: diminished lung sounds; Negative for crackles, rales, rhonchi or wheezes Cardio regular rate, regular rhythm, S1 normal heart sound, S2 normal heart sound, no murmurs, no rub and no gallops GI soft to palpation, non-tender and non-distended; Negative for hepatosplenomegaly Extremity no clubbing, cyanosis or edema General Extremity: clubbing; Negative for cyanosis or edema Skin no rashes or lesions noted General Skin Exam: no breakdown Neuro no focal motor deficits and no sensory deficits noted Neuro Narrative: Patient is pleasantly confused Psych affect normal Appearance: grossly normal Thought Process: confused Assessment & Plan Assessment/Plan (1) COVID-19: (2) Acute respiratory failure with hypoxia: (3) Acute UTI: PLAN: 1. Acute hypoxic respiratory failure secondary to COVID-19 pneumonia/erythrocytosis/emesis possible constipation/hyponatremia -Completed remdesivir and Decadron -Currently requiring 4-5 L nasal cannula at rest and with ambulation -Hemoglobin is trending down -Repeat chest x-ray shows interval improvement in her infiltrates -She is unvaccinated but her who is the only person sure she interacts with is vaccinated -Sodium appears stabilized -She [facility] likely need [facility] the plan was to get her home with her however she is a max assist of 1 and can only ambulate about 3 feet, this was relayed to the 2. Acute UTI secondary to pansensitive E. coli?resolved 3. HTN/HLD -Blood pressures are stable -Continue with her home medications and aspirin 4. DM2 -Hold Metformin, monitor Accu-Cheks AC at bedtime -Sliding scale insulin and long-acting insulin, adjust as necessary. 5. Advanced dementia -Alzheimer's -Olanzapine at night for DVT: Lovenox Charges/Coding Visit Charges Inpatient E&M: 97354 Subs Hosp L2
[2020-11-22] MEDS: Insulin Lispro 100 UNIT/ML INSULN.PEN SC (12:31)
[2020-11-22] MEDS: Insulin Lispro 100 UNIT/ML INSULN.PEN 10 UNIT SC (12:32)
--- NOTE | 2020-11-22 12:35 | NURSING ---
This nurse and Juan Carlos Rn attempted to get a walking spo2 on pt. Pt did not seem to understand the command that we wanted her to walk. Just stood there.
--- NOTE | 2020-11-22 13:20 | NURSING ---
Was told by AMEE Ingram that while pt was eating, pt vomited and then attempted to eat her vomit. Dr. Noel aware that she had an emesis and no BM thus far. New order for clear liquids.
--- NOTE | 2020-11-22 14:52 | NURSING ---
Pt only incont one time today, small amt. This nurse bladder scanned for 258ml then got up to bsc to have pt attempt to urinate. Attends had urine in it but small amt. Will continue to monitor. Dr. Noel made aware that pt vomited after lunch and just now again. Pt is now npo and will give ducolax supp. Pt back in bed laying on rt side.
[2020-11-22] MEDS: Bisacodyl 10 MG Suppository RC (14:59)
[2020-11-22 16:31] LABS: Bedside Glucose 367 mg/dL (70-110)
[2020-11-22] MEDS: Acetaminophen 650 MG Suppository RC (19:01)
[2020-11-22 19:26] LABS: Bedside Glucose 89 mg/dL (70-110)
[2020-11-22] MEDS: Ondansetron 4 MG/2 ML Vial IV (20:34)
[2020-11-22] MEDS: Lactated Ringers 1,000 ML 60 ML IV (20:36)
[2020-11-22 22:00] LABS: Bedside Glucose 141 mg/dL (70-110)
[2020-11-23] VITALS (14 sets, daily range): BP systolic 126–158; BP diastolic 66–78; PULSE 63–87; RESP 18–24; TEMP 36.8–38.2; O2SAT 90–96
[2020-11-23 01:26] LABS: Bedside Glucose 135 mg/dL (70-110)
[2020-11-23] MEDS: Acetaminophen 650 MG Suppository RC (03:10)
[2020-11-23 03:41] LABS: Bedside Glucose 94 mg/dL (70-110)
[2020-11-23 07:16] LABS: Absolute Lymphocyte Count 0.56 X10^3/uL (0.83-4.51); Absolute Neutrophil Count 5.7 X10^3/uL (2.0-7.7); Basophil# 0.02 X10^3/uL; Basophil% 0.3 % (0-1); Hematocrit 46.9 % (37-47); Hemoglobin 15.9 g/dL (12.0-15.0); Lymphocyte # 0.56 X10^3/ul (0.83-4.51); Lymphocyte % 8.6 % (19-41); Mean Corp Hgb Conc 33.9 g/dL (32-36); Mean Corpuscular Hgb 31.3 pg (27.0-32.0); Mean Corpuscular Volume 92.3 fL (81-99); Mean Platelet Vol. 12.6 fl (6.2-12.0); Monocyte# 0.16 X10^3/uL; Monocyte% 2.5 % (0-10); NRBC Flagged by Analyzer 0 % (0-5); Neutrophil # 5.68 X10^3/uL (2.7-7.7); Neutrophil % 86.9 % (47-70); POSITIVE COUNT YES; POSITIVE DIFFERENTIAL YES; POSITIVE MORPHOLOGY YES; Platelet Count 75 K/mm3 (150-450); RBC Distribution Width CV 12.8 % (11.6-14.6); RBC Distribution Width SD 43.8 fl (35.1-43.9); Red Blood Count 5.08 M/mm3 (4.2-5.4); White Blood Count 6.5 K/mm3 (4.4-11.0)
[2020-11-23 07:25] LABS: Differential Indicated SCAN CRITERIA MET
[2020-11-23 07:46] LABS: Anion Gap 6 (5-15); BUN 27 mg/dL (7-18); BUN/Creat Ratio 48.5 RATIO (10-20); Calcium,Total 8.1 mg/dL (8.5-10.1); Chloride 93 mmol/L (98-107); Creatinine, Serum 0.56 mg/dL (0.55-1.02); EST Glomerular Filtration Rate 113 mL/min (>60); Est Glom Filt Rate - Afr Amer 137 mL/min (>60); Estimated Creatinine Clearance 41.45 ml/min; Glucose 94 mg/dL (74-106); Potassium 4.1 mmol/L (3.5-5.1); Sodium Level 129 mmol/L (136-145)
[2020-11-23 08:07] LABS: Platelet Estimate MKD DEC (ADEQ); Platelet Morphology LARGE
[2020-11-23] MEDS: Enoxaparin 40 MG/0.4 ML Syringe SC (11:37)
[2020-11-23] MEDS: Aspirin 81 MG TAB.CHEW PO (11:37)
[2020-11-23] MEDS: Polyethylene Glycol 3350 17 GM PACKET PO (11:38)
[2020-11-23] MEDS: Citalopram 20 MG Tablet PO (11:39)
[2020-11-23] MEDS: amLODIPine 2.5 MG Tablet PO (11:53)
[2020-11-23] MEDS: Metoprolol Tartrate 25 MG Tablet PO (11:53)
--- NOTE | 2020-11-23 12:34 | PN.HOSP_ITS ---
Subjective Subjective Patient seen and examined. She looks quite frail and lethargic at time of review. She had complaints and review of systems otherwise negative. Per her nurse, her blood sugars were running in the 70s today. She has otherwise remained hemodynamically stable. Objective Data Objective Data Vital Signs: Vital Signs Temp Pulse Resp BP Pulse Ox 98.9 F 74 22 H 134/66 H 95 11/23/20 11:47 11/23/20 11:53 11/23/20 11:47 11/23/20 11:53 11/23/20 11:47 Oxygen Flow Rate (L/min) [ 6 AMBULATING with Oxygen #2] Oxygen Flow Rate (L/min) [ 8 AMBULATING with Oxygen #1] Oxygen Flow Rate (L/min) [At 8 REST with Oxygen] Oxygen Flow Rate (L/min) [At 0 REST on Room Air] Oxygen Flow Rate (L/min) 50 Oxygen Delivery Method Airvo Weight: 126 lb 1.671 oz Body Mass Index (BMI) 22.3 Intake & Output: Intake and Output for Last 24 Hours 11/21/20 11/22/20 11/23/20 23:59 23:59 23:59 Intake Total 340 / 340 240 / 240 Balance 340 / 340 240 / 240 Lab / Micro Data Result Diagrams: 11/23/20 06:58 11/23/20 06:58 Labs: Laboratory Results - last 24 hr 11/21/20 23:38: POC Glucose 135 H 11/22/20 12:18: POC Glucose 367 H 11/22/20 17:10: POC Glucose 89 11/22/20 20:32: POC Glucose 141 H 11/23/20 03:09: POC Glucose 94 11/23/20 06:58: WBC 6.5, RBC 5.08, Hgb 15.9 H, Hct 46.9, MCV 92.3, MCH 31.3, MCHC 33.9, RDW Std Deviation 43.8, RDW Coeff of Rubens 12.8, Plt Count 75 L, MPV 12.6 H, Immature Gran % (Auto) 1.700 H, Neut % (Auto) 86.9 H, Lymph % (Auto) 8.6 L, [place] % (Auto) 2.5, Eos % (Auto) 0.0, Baso % (Auto) 0.3, Absolute Neuts (auto) 5.7, Absolute Lymphs (auto) 0.56 L, Nucleated RBC % 0, Platelet Estimate MKD DEC, Plt Morphology Comment LARGE 11/23/20 06:58: Sodium 129 L, Potassium 4.1, Chloride 93 L, Carbon Dioxide 30.0, Anion Gap 6, BUN 27 H, Creatinine 0.56, Estim Creat Clear Calc 41.45, Est GFR (MDRD) Af Amer 137, Est GFR (MDRD) Non-Af 113, BUN/Creatinine Ratio 48.5 H, Glucose 94, Calcium 8.1 L Micro: Microbiology 11/11/20 10:00 Blood Culture (Wb) - Left Wrist Blood Culture - Final No growth in 5 days. 11/11/20 10:08 Blood Culture (Wb) - Right Wrist Blood Culture - Final No growth in 5 days. 11/11/20 10:20 Urine, Catheterized Urine Culture - Final Presumptive E. coli 11/11/20 09:47 Nasal Secretion SARS-CoV-2 Antigen (Rapid) - Final SARS-CoV-2 (COVID 19) Physical Exam Const alert and oriented x3 Constitutional Narrative: lethargic Exam Limitations: no limitations HEENT head/scalp atraumatic Head and Scalp: normocephalic Mouth: dry mucous membranes Eyes PERRL, EOMs intact bilaterally and conjunctivae normal Neck no lymphadenopathy Resp Resp Narrative: diminished breath sounds bibasally, no wheezes or crackles. On AirVo at 50L, tachypneic Cardio regular rate, regular rhythm, S1 normal heart sound, S2 normal heart sound and no murmurs GI normal to inspection, nondistended, normoactive bowel sounds, soft to palpation, non-tender and non-distended Extremity normal to inspection, full ROM and no clubbing, cyanosis or edema Peripheral Pulses: Yes pulses 2+ throughout Skin no rashes or lesions noted Neuro oriented x3, CN's II-XII intact bilaterally and moves all extremities Sensorium / Orientation: awake and alert Psych Psych Narrative: flat affect Assessment & Plan Assessment/Plan (1) Acute respiratory failure with hypoxia: (2) COVID-19: PLAN: #Acute hypoxic respiratory failure due to COVID 19 pneumonia * completed a course of remdesivir and decadron. * now on AirVO * titrate oxygen to maintain sats >90% * breathing treatment with bronchodilators * will consult pulmonology as patient is now requiring AirVo. She has been here for ~ 2 weeks, and doesnt seem to be improving much. Will also get CTA of her chest. * #Hypoglycemia * blood sugar was down in the 70s today * hold lantus. metformin on hold * ISS. Accuchecks ACHS * start on D5W @ 60cc/hr * #UTI due to E. coli: resolved #Hypertension: on amlodipine 2.5mg daily and metoprolol 25mg bid. #Hyperlipidemia: on statin #ALzheimer's dementia: on olanzapinie qhs for DVT prophylaxis: lovenox Charges/Coding Visit Charges Inpatient E&M: 16229 Subs Hosp L3
--- NOTE | 2020-11-23 12:47 | CT_ITS ---
EXAM: CT ANGIOGRAPHY CHEST WITHOUT AND WITH INTRAVENOUS CONTRAST CLINICAL INDICATION: shortness of breath, covid TECHNIQUE: Helically acquired angiography images were obtained of the chest without and with intravenous contrast. This CT exam was performed using one or more of the following dose reduction techniques: automated exposure control, adjustment of the mA and/or kV according to patient size, and/or use of iterative reconstruction technique. This report was created using [employer] report generation technology. MIP reconstructed images were created and reviewed. CONTRAST: IV 100mL Isovue-370 COMPARISON: None. FINDINGS: PULMONARY ARTERIES: Unremarkable. Normal in caliber. No evidence of pulmonary embolism. AORTA: Unremarkable. Normal in caliber. No evidence of dissection. GREAT VESSELS OF AORTIC ARCH: Unremarkable. Normal in caliber. No evidence of dissection. LUNGS AND PLEURAL SPACES: Peripheral consolidation in the posterior right lower lobe and scattered peripheral groundglass opacities in both upper lobes, the right middle lobe, the lingular segment and the left lower lobe. They are consistent with Covid 19 pneumonia. No mass. No pleural effusion or thickening. HEART: Unremarkable. Heart size is normal. No pericardial effusion. No signs of right heart strain, ratio of right ventricle to left ventricle measures less than 1. MEDIASTINUM: Unremarkable. No mediastinal or hilar adenopathy. Esophagus is unremarkable. No hiatal hernia. THYROID: Unremarkable. No thyroid lesions. BONES/JOINTS: Unremarkable. No suspicious lytic or blastic abnormality. LYMPH NODES: Multiple small solid lymph nodes in the anterior paratracheal space, anterior carinal space, the left AP window, adjacent the left transverse aorta and the left hilum. CT/CTA Chest W/WO Contrast IMPRESSION: 1. No CTA evidence of pulmonary thromboemboli, thoracic aortic aneurysm or dissection. 2. Abnormal peripheral consolidation in the right posterior lower lobe and scattered peripheral groundglass opacities in both upper lobes, right middle lobe, lingular segment and left lower lobe are consistent with Covid 19 pneumonia. Electronically Signed: Juan Rushing MD at 14:28 EDT , Service support ,
[2020-11-23 14:11] LABS: Bedside Glucose 77 mg/dL (70-110)
[2020-11-23] MEDS: 0.9% Saline Lock 10 ML Syringe IV (15:57)
--- NOTE | 2020-11-23 17:08 | CASEMGMT ---
Social Work Note SW placed a call to Avel with APS and left message updating her that pt is still at [facility]. SW to continue to follow. Aislinn Rowe MONITOR TECH, OPERATIONS MANAGER STATION
[2020-11-23 21:20] LABS: Bedside Glucose 76 mg/dL (70-110)
[2020-11-23 21:35] LABS: Bedside Glucose 113 mg/dL (70-110)
[2020-11-23 21:56] LABS: Bedside Glucose 131 mg/dL (70-110)
[2020-11-24] VITALS (11 sets, daily range): BP systolic 120–159; BP diastolic 60–88; PULSE 74–93; RESP 22–30; TEMP 37.1–37.3; O2SAT 89–94
--- NOTE | 2020-11-24 04:33 | CPS ---
NRB 15L placed overtop of AirVo
--- NOTE | 2020-11-24 05:52 | CON.PCM.CC_ITS ---
Assessment & Plan Assessment/Plan (1) Acute respiratory failure with hypoxia: (2) COVID-19: PLAN: RECOMMENDATIONS: 1. Wean FiO2 to maintain oxygen saturations at or above 90%. 2. Start empiric antimicrobials. 3. Check strep and urine Legionella antigens, along with MRSA screen. 4. Stop continuous IV fluids. 5. Start scheduled Lasix. 6. Check BNP and procalcitonin. 7. Recommend goals of care discussion with patient's family. IMPRESSIONS: 1. Acute hypoxemic respiratory failure secondary to COVID-19 pneumonia The patient was initially admitted to the hospital with COVID-19 pneumonia and subsequently completed a treatment course of remdesivir and Decadron. There is some concern that she may have experienced an aspiration event, which led to her respiratory decompensation. Her oxygenation status has worsened over the last 48 hours. With the aforementioned in mind, the patient will be started on empiric broad-spectrum antimicrobials. We will check strep and urine Legionella antigens along with MRSA screen. I am also going to place her on scheduled IV Lasix as tolerated by hemodynamics and renal function. CTA chest completed yesterday showed no evidence for pulmonary embolism. 2. Advanced age/Alzheimer's dementia/hypertension/hyperlipidemia Complicates care, management, recovery and prognosis. Continue home medications as indicated. This note was generated with [employer] dictation software. It may contain incorrect words, spelling, and punctuation that were not noted in checking the note before signing. HPI Consult Data Date of Consult: 11/24/20 HPI Narrative Reason for Consultation: Acute hypoxemic respiratory failure HPI Narrative: The patient is a 75-year-old female, with a history as outlined below, who initially presented to the emergency department on November 11 with generalized weakness and altered mental status. The patient was subsequently found to be positive for coronavirus. The patient, to date, has completed a treatment course of remdesivir and Decadron. Recently, the patient had an aspiration event. Since that time, the patient has had worsening in her respiratory status. She was transitioned yesterday from nasal cannula oxygen to Airvo heated high flow. The patient is currently documented to be over 8 L positive for the hospitalization. Covid testing was initially found to be positive on November 11. Platelet count is low this morning at 72,000. Sodium is also low this morning at 126 with a chloride of 91 and normal creatinine. The patient was started on D5W yesterday. Currently, the patient is too confused to provide any additional insight into her condition. She did repeatedly request to be allowed to drink. [facility] Medical History (Updated 11/16/20 @ 19:[address] Elliot Noel MD) Anxiety Coronary artery disease Dementia Depression Diabetes Diabetes Former smoker HTN (hypertension) Irregular heart beat Home Medications amlodipine 2.5 mg PO DAILY 11/11/20 [History Last Taken 11/11/20 08:00] aspirin 81 mg PO/SL DAILY 11/11/20 [History Last Taken 11/11/20 08:00] citalopram 20 mg PO DAILY 11/11/20 [History Last Taken 11/11/20 08:00] magnesium 500 mg PO/SL BID 11/11/20 [History Last Taken 11/11/20 08:00] metformin 500 mg PO BID 11/11/20 [History Last Taken 11/11/20 08:00] metoprolol tartrate 25 mg PO BID 11/11/20 [History Last Taken 11/11/20 08:00] olanzapine 2.5 mg PO QHS 11/11/20 [History Last Taken 11/10/20 21:00] trazodone 50 mg PO QHS 11/11/20 [History Last Taken 11/10/20 21:00] Allergy/AdvReac Type Severity Reaction Status Date / Time Penicillins Allergy Unknown Verified 11/11/20 09:37 Surgical History (Updated 11/11/20 @ 15:48 by Robby Posada) History of appendectomy History of cholecystectomy History of coronary artery stent placement Stented coronary artery Stented coronary artery Social History Smoking Status: Former smoker ROS Review of Systems ROS Unobtainable: due to mental condition and due to mental status Physical Exam Const alert General Appearance: ill appearing and frail Orientation / Consciousness: awake, confused and disoriented HEENT normocephalic and head/scalp atraumatic Eyes PERRL and EOMs intact bilaterally Neck supple General: trachea midline Chest inspection of chest normal Resp Effort and Inspection: tachypneic and labored Auscultation: diminished lung sounds; Negative for rales, rhonchi or wheezes Cardio regular rate and regular rhythm GI normal to inspection, nondistended, normoactive bowel sounds Extremity no clubbing, cyanosis or edema Skin no rashes or lesions noted Neuro moves all extremities and no focal motor deficits Psych Activity / Motor Behavior: restless Lab / Micro Data Result Diagrams: 11/24/20 06:16 11/24/20 06:16 Labs: Laboratory Results - last 24 hr 11/23/20 06:58: WBC 6.5, RBC 5.08, Hgb 15.9 H, Hct 46.9, MCV 92.3, MCH 31.3, MCHC 33.9, RDW Std Deviation 43.8, RDW Coeff of Rubens 12.8, Plt Count 75 L, MPV 12.6 H, Immature Gran % (Auto) 1.700 H, Neut % (Auto) 86.9 H, Lymph % (Auto) 8.6 L, [place] % (Auto) 2.5, Eos % (Auto) 0.0, Baso % (Auto) 0.3, Absolute Neuts (auto) 5.7, Absolute Lymphs (auto) 0.56 L, Nucleated RBC % 0, Platelet Estimate MKD DEC, Plt Morphology Comment LARGE 11/23/20 06:58: Sodium 129 L, Potassium 4.1, Chloride 93 L, Carbon Dioxide 30.0, Anion Gap 6, BUN 27 H, Creatinine 0.56, Estim Creat Clear Calc 41.45, Est GFR (MDRD) Af Amer 137, Est GFR (MDRD) Non-Af 113, BUN/Creatinine Ratio 48.5 H, Glucose 94, Calcium 8.1 L 11/23/20 11:33: POC Glucose 77 11/23/20 16:14: POC Glucose 76 11/23/20 18:44: POC Glucose 113 H 11/23/20 21:38: POC Glucose 131 H Radiology Impression Chest CTA 11/23/20 12:47 IMPRESSION: 1. No CTA evidence of pulmonary thromboemboli, thoracic aortic aneurysm or dissection. 2. Abnormal peripheral consolidation in the right posterior lower lobe and scattered peripheral groundglass opacities in both upper lobes, right middle lobe, lingular segment and left lower lobe are consistent with Covid 19 pneumonia. Electronically Signed: Juan Rushing MD at 14:28 EDT , Service support , Charges/Coding Visit Charges Inpatient E&M: 99601 Init Hosp L3
[2020-11-24 06:37] LABS: Absolute Lymphocyte Count 0.49 X10^3/uL (0.83-4.51); Absolute Neutrophil Count 6.5 X10^3/uL (2.0-7.7); Basophil# 0.01 X10^3/uL; Basophil% 0.1 % (0-1); Hematocrit 42.3 % (37-47); Hemoglobin 14.7 g/dL (12.0-15.0); Lymphocyte # 0.49 X10^3/ul (0.83-4.51); Lymphocyte % 6.8 % (19-41); Mean Corp Hgb Conc 34.8 g/dL (32-36); Mean Corpuscular Hgb 31.5 pg (27.0-32.0); Mean Corpuscular Volume 90.8 fL (81-99); Mean Platelet Vol. 11.7 fl (6.2-12.0); Monocyte# 0.16 X10^3/uL; Monocyte% 2.2 % (0-10); NRBC Flagged by Analyzer 0 % (0-5); Neutrophil # 6.47 X10^3/uL (2.7-7.7); Neutrophil % 90.1 % (47-70); POSITIVE COUNT YES; POSITIVE DIFFERENTIAL YES; POSITIVE MORPHOLOGY YES; Platelet Count 72 K/mm3 (150-450); RBC Distribution Width CV 13.1 % (11.6-14.6); RBC Distribution Width SD 43.3 fl (35.1-43.9); Red Blood Count 4.66 M/mm3 (4.2-5.4); White Blood Count 7.2 K/mm3 (4.4-11.0)
[2020-11-24 06:39] LABS: Differential Indicated SCAN CRITERIA MET
[2020-11-24] MEDS: Insulin Lispro 100 UNIT/ML INSULN.PEN SC ×2 (06:45→21:01)
[2020-11-24 06:55] LABS: Bedside Glucose 151 mg/dL (70-110)
[2020-11-24 06:59] LABS: Anion Gap 8 (5-15); BUN 21 mg/dL (7-18); BUN/Creat Ratio 38.5 RATIO (10-20); Calcium,Total 7.2 mg/dL (8.5-10.1); Chloride 91 mmol/L (98-107); Creatinine, Serum 0.55 mg/dL (0.55-1.02); EST Glomerular Filtration Rate 116 mL/min (>60); Est Glom Filt Rate - Afr Amer 140 mL/min (>60); Estimated Creatinine Clearance 41.45 ml/min; Glucose 127 mg/dL (74-106); Potassium 3.9 mmol/L (3.5-5.1); Sodium Level 126 mmol/L (136-145)
--- NOTE | 2020-11-24 07:43 | PN.HOSP_ITS ---
Subjective Subjective Patient seen and examined. SHe is still quite frail and weak. She remains short of breath and is still tachypneic. Review of systems is otherwise negative. Per her nurse, she failed swallow evaluation. She is now on 90% FiO2 oxygen by nonrebreather mask. She has otherwise remained hemodynamically stable. Objective Data Objective Data Vital Signs: Vital Signs Temp Pulse Resp BP Pulse Ox 99.1 F 74 26 H 159/62 H 92 11/24/20 02:24 11/24/20 07:23 11/24/20 07:23 11/24/20 02:24 11/24/20 07:24 Oxygen Flow Rate (L/min) [ 6 AMBULATING with Oxygen #2] Oxygen Flow Rate (L/min) [ 8 AMBULATING with Oxygen #1] Oxygen Flow Rate (L/min) [At 8 REST with Oxygen] Oxygen Flow Rate (L/min) [At 0 REST on Room Air] Oxygen Flow Rate (L/min) 50 Oxygen Delivery Method Non-Rebreather Weight: 126 lb 1.671 oz Body Mass Index (BMI) 22.3 Intake & Output: Intake and Output for Last 24 Hours 11/22/20 11/23/20 11/24/20 23:59 23:59 23:59 Intake Total 340 / 340 924 / 924 891 / 891 Balance 340 / 340 924 / 924 891 / 891 Lab / Micro Data Result Diagrams: 11/24/20 06:16 11/24/20 06:16 Labs: Laboratory Results - last 24 hr 11/23/20 06:58: Platelet Estimate MKD DEC, Plt Morphology Comment LARGE 11/23/20 06:58: Sodium 129 L, Potassium 4.1, Chloride 93 L, Carbon Dioxide 30.0, Anion Gap 6, BUN 27 H, Creatinine 0.56, Estim Creat Clear Calc 41.45, Est GFR (MDRD) Af Amer 137, Est GFR (MDRD) Non-Af 113, BUN/Creatinine Ratio 48.5 H, Glucose 94, Calcium 8.1 L 11/23/20 11:33: POC Glucose 77 11/23/20 16:14: POC Glucose 76 11/23/20 18:44: POC Glucose 113 H 11/23/20 21:38: POC Glucose 131 H 11/24/20 06:16: WBC 7.2, RBC 4.66, Hgb 14.7, Hct 42.3, MCV 90.8, MCH 31.5, MCHC 34.8, RDW Std Deviation 43.3, RDW Coeff of Rubens 13.1, Plt Count 72 L, MPV 11.7, Immature Gran % (Auto) 0.800, Neut % (Auto) 90.1 H, Lymph % (Auto) 6.8 L, [place] % (Auto) 2.2, Eos % (Auto) 0.0, Baso % (Auto) 0.1, Absolute Neuts (auto) 6.5, Absolute Lymphs (auto) 0.49 L, Nucleated RBC % 0 11/24/20 06:16: Sodium 126 L, Potassium 3.9, Chloride 91 L, Carbon Dioxide 27.0, Anion Gap 8, BUN 21 H, Creatinine 0.55, Estim Creat Clear Calc 41.45, Est GFR (MDRD) Af Amer 140, Est GFR (MDRD) Non-Af 116, BUN/Creatinine Ratio 38.5 H, Glucose 127 H, Calcium 7.2 L 11/24/20 06:43: POC Glucose 151 H Micro: Microbiology 11/11/20 10:00 Blood Culture (Wb) - Left Wrist Blood Culture - Final No growth in 5 days. 11/11/20 10:08 Blood Culture (Wb) - Right Wrist Blood Culture - Final No growth in 5 days. 11/11/20 10:20 Urine, Catheterized Urine Culture - Final Presumptive E. coli 11/11/20 09:47 Nasal Secretion SARS-CoV-2 Antigen (Rapid) - Final SARS-CoV-2 (COVID 19) Radiography Diagnostic Testing: Radiology Impression Chest CTA 11/23/20 12:47 IMPRESSION: 1. No CTA evidence of pulmonary thromboemboli, thoracic aortic aneurysm or dissection. 2. Abnormal peripheral consolidation in the right posterior lower lobe and scattered peripheral groundglass opacities in both upper lobes, right middle lobe, lingular segment and left lower lobe are consistent with Covid 19 pneumonia. Electronically Signed: Juan Rushing MD at 14:28 EDT , Service support , Physical Exam Narrative Const alert, oriented x3 and no apparent distress Constitutional Narrative: lethargic General Appearance: cooperative Orientation / Consciousness: awake, oriented to person, oriented to place and oriented to time Exam Limitations: no limitations HEENT normocephalic, head/scalp atraumatic and moist oral mucous membranes Head and Scalp: normocephalic Eyes PERRL, EOMs intact bilaterally and conjunctivae normal Neck no lymphadenopathy, supple and no JVD General: trachea midline Resp Resp Narrative: diminished breath sounds bibasally, no wheezes or crackles.tachypneic. On oxygen by nonrebreather mask Auscultation: diminished lung sounds; Negative for crackles, rales, rhonchi or wheezes Cardio regular rate, regular rhythm, S1 normal heart sound, S2 normal heart sound, no murmurs, no rub and no gallops GI normal to inspection, nondistended, normoactive bowel sounds, soft to palpation, non-tender and non-distended; Negative for hepatosplenomegaly Extremity normal to inspection, full ROM and no clubbing, cyanosis or edema General Extremity: clubbing; Negative for cyanosis or edema Peripheral Pulses: Yes pulses 2+ throughout Skin no rashes or lesions noted General Skin Exam: no breakdown Neuro oriented x3 and CN's II-XII intact bilaterally Neuro Narrative: lethargic Sensorium / Orientation: awake and alert Psych thought process normal Psych Narrative: flat affect Appearance: grossly normal Thought Process: confused Assessment & Plan Assessment/Plan (1) Acute respiratory failure with hypoxia: (2) COVID-19: PLAN: #Acute hypoxic respiratory failure due to COVID 19 pneumonia * completed a course of remdesivir and decadron. * now on AirVO * titrate oxygen to maintain sats >90% * breathing treatment with bronchodilators * CTA of her chest was negative for PE and showed abnormal peripheral consol idation in right posterior lower lobe and scattered peripheral ground glass opacities in both upper lobes, right middle lobe, lingular segment and left lower lobe consistent with covid * started on empiric antibiotics per pulmo * pulmo on board * I spoke to her about hospice/palliative care evaluation, but he is not interested in that now, and wants to give the patient a chance to get better, and possibly take her home. * #Dysphagia * patient vomiting and likely aspirated. She also failed swallow evaluation * speech therapy on board. doesnt want patient to have a PEG tube. * #Hypoglycemia * resolving. * lantus on hold. metformin on hold * ISS. Accuchecks ACHS * fluids dc'd due to concerns about fluid overload * #UTI due to E. coli: resolved #Hypertension: on amlodipine 2.5mg daily and metoprolol 25mg bid. #Hyperlipidemia: on statin #ALzheimer's dementia: on olanzapine qhs for DVT prophylaxis: lovenox Charges/Coding Visit Charges Inpatient E&M: 54524 Subs Hosp L3
[2020-11-24] MEDS: Furosemide 40 MG/4 ML Vial IV ×2 (08:42→18:57)
[2020-11-24 08:54] LABS: Procalcitonin 0.13 ng/mL (0.00-0.09)
--- NOTE | 2020-11-24 09:58 | CASEMGMT ---
Addendum entered by Aislinn Rowe 11/24/20 11:26: SW updated that pt's doesn't want Hospice. SW placed a call to [facility] and updated Karina to disregard Hospice referral at this time. Original Note: Social Work Note Hospice consult placed. MARYANN placed a call to [facility] and spoke with Verito and provided Hospice referral. SW faxed referral to [facility]. SW updated physician, RN and protozoologist. Aislinn Rwoe CLIP RIVETER, GRAIN WEIGHER
[2020-11-24 11:25] LABS: Bedside Glucose 134 mg/dL (70-110)
[2020-11-24 16:13] LABS: M R Staph aureus DNA By PCR Negative (Negative); Probe Check PASS; Specimen Processing Control PASS
[2020-11-24 21:11] LABS: Bedside Glucose 161 mg/dL (70-110)
[2020-11-24] MEDS: Dextrose 50%-Water 25 GM/50 ML DISP.SYRIN IV (23:27)
[2020-11-24 23:40] LABS: Bedside Glucose 78 mg/dL (70-110)
[2020-11-25] VITALS (17 sets, daily range): BP systolic 108–131; BP diastolic 50–93; PULSE 78–124; RESP 14–35; TEMP 36.2–37.1; O2SAT 85–92
[2020-11-25 05:51] LABS: Bedside Glucose 101 mg/dL (70-110)
--- NOTE | 2020-11-25 07:36 | PN.HOSP_ITS ---
Subjective Subjective Patient seen and examined today. She is a bit more alert today, though still lethargic. She is on AirVO. SHe also remains tachypneic. Review of systems is otherwise negative. Objective Data Objective Data Vital Signs: Vital Signs Temp Pulse Resp BP Pulse Ox 98.4 F 96 24 H 126/67 H 92 11/25/20 05:36 11/25/20 05:36 11/25/20 05:36 11/25/20 05:36 11/25/20 05:36 Oxygen Flow Rate (L/min) [ 6 AMBULATING with Oxygen #2] Oxygen Flow Rate (L/min) [ 8 AMBULATING with Oxygen #1] Oxygen Flow Rate (L/min) [At 8 REST with Oxygen] Oxygen Flow Rate (L/min) [At 0 REST on Room Air] Oxygen Flow Rate (L/min) 60 Oxygen Delivery Method Airvo Weight: 126 lb 1.671 oz Body Mass Index (BMI) 22.3 Intake & Output: Intake and Output for Last 24 Hours 11/23/20 11/24/20 11/25/20 23:59 23:59 23:59 Intake Total 924 / 924 1865 / 1865 266 / 266 Output Total 800 / 800 200 / 200 Balance 924 / 924 1065 / 1065 66 / 66 Lab / Micro Data Result Diagrams: 11/25/20 07:40 11/25/20 07:40 Labs: Laboratory Results - last 24 hr 11/24/20 07:55: B-Natriuretic Peptide 84.0 11/24/20 07:55: Procalcitonin 0.13 H 11/24/20 11:19: POC Glucose 134 H 11/24/20 14:08: MRSA (PCR) Negative 11/24/20 20:52: POC Glucose 161 H 11/24/20 23:13: POC Glucose 78 11/25/20 05:33: POC Glucose 101 Micro: Microbiology 11/11/20 10:00 Blood Culture (Wb) - Left Wrist Blood Culture - Final No growth in 5 days. 11/11/20 10:08 Blood Culture (Wb) - Right Wrist Blood Culture - Final No growth in 5 days. 11/11/20 10:20 Urine, Catheterized Urine Culture - Final Presumptive E. coli 11/11/20 09:47 Nasal Secretion SARS-CoV-2 Antigen (Rapid) - Final SARS-CoV-2 (COVID 19) Physical Exam Narrative Const alert Constitutional Narrative: lethargic General Appearance: cooperative Orientation / Consciousness: awake, oriented to person, oriented to place and or iented to time Exam Limitations: altered mental status HEENT normocephalic, head/scalp atraumatic and moist oral mucous membranes Head and Scalp: normocephalic Eyes PERRL, EOMs intact bilaterally and conjunctivae normal Neck no lymphadenopathy, supple and no JVD General: trachea midline Resp Resp Narrative: diminished breath sounds bibasally, no wheezes or crackles.tachypneic. On AirVo Auscultation: crackles and diminished lung sounds Cardio regular rate, regular rhythm, S1 normal heart sound, S2 normal heart sound, no murmurs, no rub and no gallops GI normal to inspection, nondistended, normoactive bowel sounds, soft to palpation, non-tender and non-distended; Negative for hepatosplenomegaly Extremity normal to inspection, full ROM and no clubbing, cyanosis or edema General Extremity: clubbing; Negative for cyanosis or edema Peripheral Pulses: Yes pulses 2+ throughout Skin no rashes or lesions noted General Skin Exam: no breakdown Neuro Neuro Narrative: lethargic, confused Sensorium / Orientation: awake Psych thought process normal Psych Narrative: flat affect Appearance: grossly normal Thought Process: confused Assessment & Plan Assessment/Plan (1) Acute respiratory failure with hypoxia: (2) COVID-19: PLAN: #Acute hypoxic respiratory failure due to COVID 19 pneumonia and aspiration pneumonia * completed a course of remdesivir and decadron. is a bit more alert today * still on AirVO * titrate oxygen to maintain sats >90% * breathing treatment with bronchodilators * CTA of her chest was negative for PE and showed abnormal peripheral consolidation in right posterior lower lobe and scattered peripheral ground glass opacities in both upper lobes, right middle lobe, lingular segment and left lower lobe consistent with covid * on IV meropenem * pulmo on board #Hypokalemia: K is 3.1. Will replace and trend. #Hyponatremia: Na is 128. this is chronic. Will trend. #Dysphagia * patient vomiting and likely aspirated. She also failed swallow evaluation * speech therapy on board. doesnt want patient to have a PEG tube. * #Hypoglycemia * resolved * lantus on hold. metformin on hold * ISS. Accuchecks ACHS * #Hypertension: on amlodipine 2.5mg daily and metoprolol 25mg bid. #Hyperlipidemia: on statin #ALzheimer's dementia: on olanzapine qhs for DVT prophylaxis: lovenox Charges/Coding Visit Charges Inpatient E&M: 70190 Subs Hosp L3
--- NOTE | 2020-11-25 07:53 | CPS ---
Pt wearing Airvo @6lpm w/100% NRB mask on, SpO2=90%
[2020-11-25 08:17] LABS: Absolute Lymphocyte Count 0.77 X10^3/uL (0.83-4.51); Absolute Neutrophil Count 10.1 X10^3/uL (2.0-7.7); Basophil# 0.05 X10^3/uL; Basophil% 0.4 % (0-1); Eosinophil# 0.04 X10^3/uL; Eosinophils% 0.4 % (0-5); Hematocrit 44.8 % (37-47); Hemoglobin 15.9 g/dL (12.0-15.0); Lymphocyte # 0.77 X10^3/ul (0.83-4.51); Lymphocyte % 6.9 % (19-41); Mean Corp Hgb Conc 35.5 g/dL (32-36); Mean Corpuscular Hgb 31.4 pg (27.0-32.0); Mean Corpuscular Volume 88.4 fL (81-99); Mean Platelet Vol. 12.9 fl (6.2-12.0); Monocyte# 0.15 X10^3/uL; Monocyte% 1.3 % (0-10); NRBC Flagged by Analyzer 0 % (0-5); Neutrophil # 10.06 X10^3/uL (2.7-7.7); Neutrophil % 89.8 % (47-70); POSITIVE COUNT YES; POSITIVE MORPHOLOGY YES; Platelet Count 83 K/mm3 (150-450); RBC Distribution Width CV 12.9 % (11.6-14.6); RBC Distribution Width SD 42.1 fl (35.1-43.9); Red Blood Count 5.07 M/mm3 (4.2-5.4); White Blood Count 11.2 K/mm3 (4.4-11.0)
[2020-11-25 08:19] LABS: Differential Indicated SCAN CRITERIA MET
[2020-11-25 08:41] LABS: Anion Gap 9 (5-15); BUN 24 mg/dL (7-18); BUN/Creat Ratio 39.1 RATIO (10-20); Calcium,Total 7.8 mg/dL (8.5-10.1); Chloride 90 mmol/L (98-107); Creatinine, Serum 0.61 mg/dL (0.55-1.02); EST Glomerular Filtration Rate 101 mL/min (>60); Est Glom Filt Rate - Afr Amer 123 mL/min (>60); Estimated Creatinine Clearance 41.45 ml/min; Glucose 88 mg/dL (74-106); Potassium 3.1 mmol/L (3.5-5.1); Sodium Level 128 mmol/L (136-145)
[2020-11-25] MEDS: Furosemide 40 MG/4 ML Vial IV ×2 (09:51→17:24)
--- NOTE | 2020-11-25 10:58 | CPS ---
Pt remains on Airvo 60lpm and 91% and a 100% NRB, is unable to be weaned at this time.
[2020-11-25 11:15] LABS: Bedside Glucose 94 mg/dL (70-110)
[2020-11-25 16:56] LABS: Bedside Glucose 93 mg/dL (70-110)
--- NOTE | 2020-11-25 18:18 | EKG12_ITS ---
Test Reason : Blood Pressure : / mmHG Vent. Rate : 128 BPM Atrial Rate : 127 BPM P-R Int : 000 ms QRS Dur : 088 ms QT Int : 330 ms P-R-T Axes : 000 007 -52 degrees QTc Int : 481 ms Atrial fibrillation Septal infarct , age undetermined ST & T wave abnormality, consider inferior ischemia or digitalis effect Abnormal ECG Confirmed by CHENCHO MERLOS, CHIDI ([id number]), editor producer GENEVIEVE REES ([id number]) on 12/01/2020 10:09:28 AM Referred By: Confirmed By:CHIDI PAIZ MD
[2020-11-25] MEDS: 0.9% Saline Lock 10 ML Syringe IV ×2 (20:09→22:30)
--- NOTE | 2020-11-25 20:36 | PCM.HOSP.N ---
Hospitalist Note Called by attending hospitalist as she has been contacted by the floor nursing staff. The patient has developed A. fib with RVR. And the primary attending physician would like to transfer her to the PCU for better heart rate monitoring. It appears that her heart rates have been anywhere from the upper 90s to low 100s. She is already on a beta-regulo at 25 mg p.o. twice daily. As needed order for metoprolol 5 mg every 6 hours for heart rate that sustained greater than 110 while at rest was placed as well as increasing her enoxaparin from 40 mg daily to 60 mg twice daily for full anticoagulation. I suspect this is related to her persistent hypoxia and Covid infection. I have transitioned her from air Vo to BiPAP as she tolerates. Her CODE STATUS is DNR CCA with no intubation.
--- NOTE | 2020-11-25 20:51 | NURSING ---
Called garage supervisor for bed in PCU.
[2020-11-25 21:10] LABS: Bedside Glucose 81 mg/dL (70-110)
--- NOTE | 2020-11-25 21:18 | NURSING ---
Report called to Katy GOLDMAN in PCU.
--- NOTE | 2020-11-25 21:35 | NURSING ---
Pharmacy called to say that metoprolol could not be verified until pt is placed on telemetry. I called and advised them that pt was being transported to PCU and they would be placed on telemetry down there.
--- NOTE | 2020-11-25 21:52 | CPS ---
pt moved from ms3 to pcu on bipap at 100% ava well
[2020-11-25] MEDS: Metoprolol Tartrate 5 MG/5 ML Vial IV (22:25)
[2020-11-25] MEDS: Enoxaparin 60 MG/0.6 ML Syringe SC (22:33)
--- NOTE | 2020-11-25 22:52 | NURSING ---
attempted to call pts to make him aware pt was tx to PCU, no answer, left voicemail.
[2020-11-26] VITALS (34 sets, daily range): BP systolic 90–132; BP diastolic 54–86; PULSE 89–159; RESP 14–37; TEMP 36.6–37.3; O2SAT 89–96
[2020-11-26 00:35] LABS: Bedside Glucose 91 mg/dL (70-110)
--- NOTE | 2020-11-26 01:27 | CPS ---
pt continues to try and take BIPAP mask & cont pulse ox probe off.
[2020-11-26 06:50] LABS: Bedside Glucose 92 mg/dL (70-110)
[2020-11-26 07:19] LABS: Absolute Neutrophil Count 10.4 X10^3/uL (2.0-7.7); Basophil# 0.07 X10^3/uL; Basophil% 0.6 % (0-1); Eosinophil# 0.03 X10^3/uL; Eosinophils% 0.3 % (0-5); Hematocrit 44.5 % (37-47); Hemoglobin 15.7 g/dL (12.0-15.0); Lymphocyte % 6.8 % (19-41); Mean Corp Hgb Conc 35.3 g/dL (32-36); Mean Corpuscular Hgb 31.2 pg (27.0-32.0); Mean Corpuscular Volume 88.3 fL (81-99); Mean Platelet Vol. 13.5 fl (6.2-12.0); Monocyte# 0.22 X10^3/uL; Monocyte% 1.9 % (0-10); NRBC Flagged by Analyzer 0 % (0-5); Neutrophil # 10.42 X10^3/uL (2.7-7.7); Neutrophil % 89.2 % (47-70); POSITIVE COUNT YES; POSITIVE MORPHOLOGY YES; Platelet Count 95 K/mm3 (150-450); RBC Distribution Width CV 12.9 % (11.6-14.6); Red Blood Count 5.04 M/mm3 (4.2-5.4); White Blood Count 11.7 K/mm3 (4.4-11.0)
[2020-11-26 07:24] LABS: Differential Indicated SCAN CRITERIA MET
[2020-11-26 07:47] LABS: Platelet Estimate MOD DEC (ADEQ); Reactive Lymphocyte RARE
[2020-11-26 07:58] LABS: Anion Gap 13 (5-15); BUN 44 mg/dL (7-18); BUN/Creat Ratio 61.5 RATIO (10-20); Chloride 92 mmol/L (98-107); Creatinine, Serum 0.72 mg/dL (0.55-1.02); EST Glomerular Filtration Rate 85 mL/min (>60); Est Glom Filt Rate - Afr Amer 103 mL/min (>60); Estimated Creatinine Clearance 41.45 ml/min; Glucose 89 mg/dL (74-106); Potassium 2.6 mmol/L (3.5-5.1); Sodium Level 133 mmol/L (136-145)
[2020-11-26] MEDS: Enoxaparin 60 MG/0.6 ML Syringe SC ×2 (10:09→20:59)
[2020-11-26] MEDS: Furosemide 40 MG/4 ML Vial IV ×2 (10:09→17:56)
[2020-11-26] MEDS: dilTIAZem 25 MG/5 ML Vial IV BOLUS (10:57)
[2020-11-26 11:50] LABS: Bedside Glucose 105 mg/dL (70-110)
[2020-11-26] MEDS: Potassium Chloride 10mEq/100mL 10 MEQ/100 ML IV.SOLN. 100 MEQ IV BOLUS ×4 (14:59→19:28)
--- NOTE | 2020-11-26 16:57 | PN.HOSP_ITS ---
Subjective Subjective Patient seen and examined. Patient has deteriorated some more respiratory strickland and is now on BiPAP. She was initially on 90% FiO2 but this trended up to 100% FiO2. She remains in A. fib with RVR and this has been difficult to control. Patient just does not seem to be improving. Unable to do review of systems as she is quite confused though she is much more alert today. Objective Data Objective Data Vital Signs: Vital Signs Temp Pulse Resp BP Pulse Ox 97.9 F 147 H 32 H 102/71 91 11/26/20 16:00 11/26/20 16:00 11/26/20 16:00 11/26/20 16:00 11/26/20 16:00 Oxygen Flow Rate (L/min) [ 6 AMBULATING with Oxygen #2] Oxygen Flow Rate (L/min) [ 8 AMBULATING with Oxygen #1] Oxygen Flow Rate (L/min) [At 8 REST with Oxygen] Oxygen Flow Rate (L/min) [At 0 REST on Room Air] Oxygen Flow Rate (L/min) 60 Oxygen Delivery Method Bi-pap Weight: 126 lb 1.671 oz Body Mass Index (BMI) 22.3 Intake & Output: Intake and Output for Last 24 Hours 11/24/20 11/25/20 11/26/20 23:59 23:59 23:59 Intake Total 1865 / 1865 386 / 386 347.58 / 347.58 Output Total 800 / 800 900 / 945 255 / 255 Balance 1065 / 1065 -514 / -559 92.58 / 92.58 Lab / Micro Data Result Diagrams: 11/27/20 07:10 11/27/20 07:10 Labs: Laboratory Results - last 24 hr 11/25/20 21:02: POC Glucose 81 11/26/20 00:30: POC Glucose 91 11/26/20 06:45: WBC 11.7 H, RBC 5.04, Hgb 15.7 H, Hct 44.5, MCV 88.3, MCH 31.2, MCHC 35.3, RDW Std Deviation 42.0, RDW Coeff of Rubens 12.9, Plt Count 95 L, MPV 13.5 H, Immature Gran % (Auto) 1.200 H, Neut % (Auto) 89.2 H, Lymph % (Auto) 6.8 L, [place] % (Auto) 1.9, Eos % (Auto) 0.3, Baso % (Auto) 0.6, Absolute Neuts (auto) 10.4 H, Absolute Lymphs (auto) 0.80 L, Nucleated RBC % 0, Reactive Lymphocytes RARE, Platelet Estimate MOD DEC 11/26/20 06:45: Sodium 133 L, Potassium 2.6 L*, Chloride 92 L, Carbon Dioxide 28.0, Anion Gap 13, BUN 44 H, Creatinine 0.72, Estim Creat Clear Calc 41.45, Est GFR (MDRD) Af Amer 103, Est GFR (MDRD) Non-Af 85, BUN/Creatinine Ratio 61.5 H, Glucose 89, Calcium 8.0 L 11/26/20 06:48: POC Glucose 92 11/26/20 10:55: POC Glucose 105 Micro: Microbiology 11/24/20 23:20 Urine, Clean Catch Streptococcus pneumoniae Antigen (M - F inal 11/24/20 23:20 Urine, Clean Catch Legionella Antigen - Final 11/11/20 10:00 Blood Culture (Wb) - Left Wrist Blood Culture - Final No growth in 5 days. 11/11/20 10:08 Blood Culture (Wb) - Right Wrist Blood Culture - Final No growth in 5 days. 11/11/20 10:20 Urine, Catheterized Urine Culture - Final Presumptive E. coli 11/11/20 09:47 Nasal Secretion SARS-CoV-2 Antigen (Rapid) - Final SARS-CoV-2 (COVID 19) Physical Exam Narrative Const alert Constitutional Narrative: lethargic and very weak General Appearance: cooperative Orientation / Consciousness: awake, oriented to person, oriented to place and oriented to time Exam Limitations: altered mental status HEENT normocephalic, head/scalp atraumatic and moist oral mucous membranes Head and Scalp: normocephalic Eyes PERRL, EOMs intact bilaterally and conjunctivae normal Neck no lymphadenopathy, supple and no JVD General: trachea midline Resp Resp Narrative: diminished breath sounds bibasally, no wheezes or crackles.tachypneic. On AirVo Auscultation: crackles and diminished lung sounds Cardio S1 normal heart sound, S2 normal heart sound, no murmurs and no gallops Cardio Narrative: afib with RVR GI normal to inspection, nondistended, normoactive bowel sounds, soft to palpation, non-tender and non-distended; Negative for hepatosplenomegaly Extremity normal to inspection, full ROM and no clubbing, cyanosis or edema General Extremity: clubbing; Negative for cyanosis or edema Peripheral Pulses: Yes pulses 2+ throughout Skin no rashes or lesions noted General Skin Exam: no breakdown Neuro Neuro Narrative: lethargic, confused Speech: speech normal Psych thought process normal Psych Narrative: flat affect Appearance: grossly normal Thought Process: confused Assessment & Plan Assessment/Plan (1) Acute respiratory failure with hypoxia: (2) COVID-19: PLAN: #Acute hypoxic respiratory failure due to COVID 19 pneumonia and aspiration pneumonia * completed a course of remdesivir and decadron.y * patient now on BIPAP with FiO2 of 100%. Patient very weak and deteriorating. * breathing treatment with bronchodilators * CTA of her chest was negative for PE and showed abnormal peripheral consolidation in right posterior lower lobe and scattered peripheral ground glass opacities in both upper lobes, right middle lobe, lingular segment and left lower lobe consistent with covid * on IV meropenem * pulmo on board Afib with RVR * Patient developed A. fib with RVR. She remains tachycardic. Give her a bolus of IV Cardizem but she still remained tachycardic. * Started on Cardizem drip. * We will hold off on cardiology consult for now as her is considering hospice placement. * #Hypokalemia: K is 2.6. Will replace and trend. #Hyponatremia: Na is 133 today. this is chronic. Will trend. #Dysphagia * failed speech therapy evaluation. * speech therapy on board. doesnt want patient to have a PEG tube. * #Hypoglycemia * resolved * lantus on hold. metformin on hold * ISS. Accuchecks ACHS * #Hypertension: on amlodipine 2.5mg daily and metoprolol 25mg bid. #Hyperlipidemia: on statin #ALzheimer's dementia: on olanzapine qhs for DVT prophylaxis: lovenox Code status: * remains DNRCCA no intubation for now. I spoke to her at length about her deterioration and grim prognosis. Patient is now acceptable of patient's condition and was open to hospice evaluation. Hospice consulted. Patient will likely be switched to DNRCC today once hospice evaluates patient. I did speak to the hospice physician Dr. Fuller about patient and hospice is currently on board. Charges/Coding Visit Charges Inpatient E&M: 73980 Subs Hosp L3
--- NOTE | 2020-11-26 17:10 | NURSING ---
this RN attempted to wean pt off of BiPap for transport to hospice facility. Pt placed on non-rebreather mask 15L O2 for 4 minutes and destat to 87%. imitation marble mechanic made aware. pt not safe for transport at this time.
[2020-11-26 22:46] LABS: Bedside Glucose 186 mg/dL (70-110)
[2020-11-27] VITALS (19 sets, daily range): BP systolic 99–123; BP diastolic 66–81; PULSE 102–141; RESP 14–36; TEMP 36.8–37; O2SAT 46–95
[2020-11-27 06:06] LABS: Bedside Glucose 206 mg/dL (70-110)
[2020-11-27 07:30] LABS: Absolute Lymphocyte Count 0.81 X10^3/uL (0.83-4.51); Basophil# 0.05 X10^3/uL; Basophil% 0.4 % (0-1); Eosinophil# 0.01 X10^3/uL; Eosinophils% 0.1 % (0-5); Hematocrit 47.1 % (37-47); Hemoglobin 16.6 g/dL (12.0-15.0); Lymphocyte # 0.81 X10^3/ul (0.83-4.51); Lymphocyte % 5.7 % (19-41); Mean Corp Hgb Conc 35.2 g/dL (32-36); Mean Corpuscular Hgb 31.3 pg (27.0-32.0); Mean Corpuscular Volume 88.7 fL (81-99); Monocyte# 0.29 X10^3/uL; NRBC Flagged by Analyzer 0 % (0-5); Neutrophil # 12.98 X10^3/uL (2.7-7.7); Neutrophil % 90.8 % (47-70); POSITIVE MORPHOLOGY YES; Platelet Count 144 K/mm3 (150-450); RBC Distribution Width CV 13.1 % (11.6-14.6); RBC Distribution Width SD 42.5 fl (35.1-43.9); Red Blood Count 5.31 M/mm3 (4.2-5.4); White Blood Count 14.3 K/mm3 (4.4-11.0)
[2020-11-27 07:31] LABS: Differential Indicated SCAN CRITERIA MET
[2020-11-27 07:46] LABS: Anion Gap 18 (5-15); BUN 59 mg/dL (7-18); BUN/Creat Ratio 72.6 RATIO (10-20); Chloride 96 mmol/L (98-107); Creatinine, Serum 0.81 mg/dL (0.55-1.02); EST Glomerular Filtration Rate 73 mL/min (>60); Est Glom Filt Rate - Afr Amer 89 mL/min (>60); Estimated Creatinine Clearance 51.17 ml/min; Glucose 231 mg/dL (74-106); Potassium 3.1 mmol/L (3.5-5.1); Sodium Level 137 mmol/L (136-145)
[2020-11-27 08:15] LABS: Atypical Lymphocyte 1+ %
--- NOTE | 2020-11-27 08:45 | NURSING ---
This RN assuming care of patient from Morelia Zuniga RN.
--- NOTE | 2020-11-27 10:29 | CASEMGMT ---
Social Work Per Dr. Talavera, patient is comfort care. Patient family currently with patient and saying goodbyes. Family to notify nursing staff when to discontinue medical management per Dr. Talavera. Dr. Talavera reports that patient is unable to medically manage transfer to Inpatient Hospice unit. This social sciences chair met with patient and patient family in room. Support provided. No current needs identified. Will continue to follow as needed. Chrissy SANCHEZ, MANJU-S
--- NOTE | 2020-11-27 11:30 | NURSING ---
Spoke with on phone in regards to staying with patient when withdrawing care. was here earlier this am to see patient however left without speaking to an RN. stated it was ok to withdraw care however he did not want to be here when care is withdrawn.
[2020-11-27] MEDS: morphine (oral solution) 10MG/0.5ML Syringe 5 MG SL/PO ×5 (12:53→22:17)
[2020-11-27] MEDS: LORazepam 2 MG/ML Bottle 0.5 MG SL ×2 (16:15→20:16)
--- NOTE | 2020-11-27 16:35 | PN.HOSP_ITS ---
Subjective Subjective Patient seen and examined. Family was by her bedside, namely her sister, niece and . Patient remains on BiPAP at 100% and looks quite frail. Unable to do extensive review of systems on account of patient's weakness and lethargy. CODE STATUS to be switched to DNR CC per discussion with . Objective Data Objective Data Vital Signs: Vital Signs Temp Pulse Resp BP Pulse Ox 98.6 F 118 H 29 H 112/69 94 11/27/20 08:00 11/27/20 12:22 11/27/20 11:00 11/27/20 11:00 11/27/20 11:00 Oxygen Flow Rate (L/min) [ 6 AMBULATING with Oxygen #2] Oxygen Flow Rate (L/min) [ 8 AMBULATING with Oxygen #1] Oxygen Flow Rate (L/min) [At 8 REST with Oxygen] Oxygen Flow Rate (L/min) [At 0 REST on Room Air] Oxygen Flow Rate (L/min) 60 Oxygen Delivery Method Room Air Weight: 126 lb 1.671 oz Body Mass Index (BMI) 22.3 Intake & Output: Intake and Output for Last 24 Hours 11/25/20 11/26/20 11/27/20 23:59 23:59 23:59 Intake Total 386 / 386 758.58 / 758.58 326.25 / 326.25 Output Total 900 / 945 655 / 655 125 / 125 Balance -514 / -559 103.58 / 103.58 201.25 / 201.25 Lab / Micro Data Result Diagrams: 11/27/20 07:10 11/27/20 07:10 Labs: Laboratory Results - last 24 hr 11/26/20 22:20: POC Glucose 186 H 11/27/20 05:53: POC Glucose 206 H 11/27/20 07:10: WBC 14.3 H, RBC 5.31, Hgb 16.6 H, Hct 47.1 H, MCV 88.7, MCH 31.3, MCHC 35.2, RDW Std Deviation 42.5, RDW Coeff of Rubens 13.1, Plt Count 144 L, MPV 13.0 H, Immature Gran % (Auto) 1.000 H, Neut % (Auto) 90.8 H, Lymph % (Auto) 5.7 L, [place] % (Auto) 2.0, Eos % (Auto) 0.1, Baso % (Auto) 0.4, Absolute Neuts (auto) 13.0 H, Absolute Lymphs (auto) 0.81 L, Nucleated RBC % 0, Atypical Lymphocytes 1+ 11/27/20 07:10: Sodium 137, Potassium 3.1 L, Chloride 96 L, Carbon Dioxide 23.0, Anion Gap 18 H, BUN 59 H, Creatinine 0.81, Estim Creat Clear Calc 51.17, Est GFR (MDRD) Af Amer 89, Est GFR (MDRD) Non-Af 73, BUN/Creatinine Ratio 72.6 H, Glucose 231 H, Calcium 8.0 L Micro: Microbiology 11/24/20 23:20 Urine, Clean Catch Streptococcus pneumoniae Antigen (M - Final 11/24/20 23:20 Urine, Clean Catch Legionella Antigen - Final 11/11/20 10:00 Blood Culture (Wb) - Left Wrist Blood Culture - Final No growth in 5 days. 11/11/20 10:08 Blood Culture (Wb) - Right Wrist Blood Culture - Final No growth in 5 days. 11/11/20 10:20 Urine, Catheterized Urine Culture - Final Presumptive E. coli 11/11/20 09:47 Nasal Secretion SARS-CoV-2 Antigen (Rapid) - Final SARS-CoV-2 (COVID 19) Physical Exam Narrative Const Constitutional Narrative: lethargic and very weak General Appearance: cooperative Orientation / Consciousness: awake, oriented to person, oriented to place and oriented to time Exam Limitations: altered mental status HEENT normocephalic, head/scalp atraumatic and moist oral mucous membranes Head and Scalp: normocephalic Eyes PERRL, EOMs intact bilaterally and conjunctivae normal Neck no lymphadenopathy, supple and no JVD General: trachea midline Resp Resp Narrative: diminished breath sounds bibasally, no wheezes or crackles.tachypneic. On BIPAP at 100% FiO2 Auscultation: diminished lung sounds Cardio S1 normal heart sound, S2 normal heart sound, no murmurs and no gallops Cardio Narrative: remains in afib with RVR GI normal to inspection, nondistended, normoactive bowel sounds, soft to palpation, non-tender and non-distended; Negative for hepatosplenomegaly Extremity normal to inspection, full ROM and no clubbing, cyanosis or edema General Extremity: clubbing; Negative for cyanosis or edema Skin no rashes or lesions noted General Skin Exam: no breakdown Neuro oriented x3 and CN's II-XII intact bilaterally Neuro Narrative: lethargic, confused Sensorium / Orientation: awake Speech: speech normal Psych thought process normal Psych Narrative: flat affect Appearance: grossly normal Thought Process: confused Assessment & Plan Assessment/Plan (1) Acute respiratory failure with hypoxia: (2) COVID-19: PLAN: #Acute hypoxic respiratory failure due to COVID 19 pneumonia and aspiration pneumonia * completed a course of remdesivir and decadron. * remains very weak, still on FiO2 of 100% * prognosis remains very poor * code status switched to DNRCC today, per family request * Afib with RVR * Patient developed A. fib with RVR. She remains tachycardic. was started on cardizem drip yesterday. This will be stopped as code status is now DNRCC. * #Hypokalemia: K is 3.1 today. Will replace. #Hyponatremia: Na is 137 today. #Dysphagia * failed speech therapy evaluation. * speech therapy on board. doesnt want patient to have a PEG tube. * #Hypoglycemia * resolved * lantus on hold. metformin on hold * ISS. Accuchecks ACHS * #Hypertension: on amlodipine 2.5mg daily and metoprolol 25mg bid. #Hyperlipidemia: on statin #ALzheimer's dementia: on olanzapine qhs for DVT prophylaxis: lovenox Code status: * Code status switched to DNRCC. Hospice on board. Plan is to withdraw care today. Charges/Coding Visit Charges Inpatient E&M: 37991 [facility] Hosp L3
[2020-11-28] MEDS: morphine (oral solution) 10MG/0.5ML Syringe 5 MG SL/PO ×2 (00:25→01:36)
[2020-11-28] MEDS: LORazepam 2 MG/ML Bottle 0.5 MG SL (00:26)
[2020-11-28] MEDS: Atropine Sulfate 1% 2 ml Bottle 4 DRP SL (00:41)
--- NOTE | 2020-11-28 01:30 | NURSING ---
Notified Dr. Agustin pt is appearing uncomfortable, making moaning sound with respirations. Order received for roxanol 5 mg x1. And to increase dose to 10 mg q2hrs as needed.
[2020-11-28 01:44] VITALS: BP 48/22; PULSE 101; RESP 13; O2SAT 61
--- NOTE | 2020-11-28 02:00 | NURSING ---
Pt was noted to have no respirations and no pulse at this time. Confirmed with Daina Lerma RN.
--- NOTE | 2020-11-28 02:20 | NURSING ---
Attempted to contact pt's Jack at this time. Left message on answering machine to call.
--- NOTE | 2020-11-28 02:33 | NURSING ---
Pt's Jack was notified of the patient's passing. States to contact [facility] and that he would not be in at this time.
--- NOTE | 2020-11-28 02:54 | EXP.PCM_ITS ---
Preliminary Cause of Preliminary Cause of Preliminary Cause of : Acute hypoxic respiratory failure secondary to COVID-19 pneumonia Date of Admission: 11/11/20 Date of : 11/28/20 Principle Diagnosis Acute hypoxic respiratory failure Problem List: Active and Suspected Problems (Updated 11/16/20 @ 19:[address] Elliot Noel MD) Acute respiratory failure with hypoxia (Acute) COVID-19 (Acute) Hypoxemia (Acute) Acute UTI (Acute) Sepsis (Acute) Hospital Course Mrs. Kim was a 75-year-old female who presented to the emergency department [facility] on 11/11/2020 with a chief complaint of generalized weakness. She lives with her and she has dementia at baseline. Typically she had been very mobile and was able to move around with minimal assistance but on the day of admission she was very weak and could not stand and therefore was brought to the emergency department. Evaluation in the emergency department revealed a UA that was consistent with urinary tract infection and COVID-19 pneumonia. On admission she required 6 L of nasal cannula to maintain a sat greater than 90% and the patient was admitted to the [facility] floor for treatment of Covid and her urinary tract infection. She had not been vaccinated because she would not leave the house to go get the vaccination. On admission she was a DNR CCA with no intubation. Urine culture grew E. coli and she completed of course of antibiotics. She was placed and completed courses of remdesivir and Decadron. She maintained stability on 6 L of nasal cannula and had been able to be weaned to 3 L nasal cannula but on 11/22/2020 her oxygen requirements trended back up. On 11/24/2020 pulmonary was consulted for worsening oxygenation status. In addition to her COVID-19 she had an aspiration event on 11/23/2020 after an emesis. She was placed on empiric antimicrobials and diuresis. After her aspiration event she required air Vo/nonrebreather at 90% FiO2. She was seen by speech therapy and failed her swallow eval. A CTA of her chest was performed on 11/25/2020 was negative for PE but did show abnormal peripheral consolidation in the right posterior lower lobe and scattered peripheral groundglass opacities diffusely. She was maintained on meropenem at that time. She developed A. fib with RVR on 11/25/2020 and was placed on metoprolol 5 mg every 6 hours as well as increasing her enoxaparin from prophylactic to treatment dose with her atrial fibrillation. She was also transitioned from air Vo to BiPAP as she was hypoxic on air Vo with oxygen saturations in the mid 80s. With her further deterioration extensive conversation was had with the patient's given her grim prognosis and hospice was consulted. CODE STATUS was changed to DNR CCA after discussion with the and she was treated symptomatically. She at 2 a.m. on 11/28/2020. Visit Charges Inpatient E&M: 04813 Disch Hosp
--- NOTE | 2020-12-01 16:29 | CASEMGMT ---
Social Work Note SW received call from [place] with [facility]PS asking for update on pt. SW reviewed chart, pt 11/28/2020. MARYANN updated Avel with [facility]PS of pt's passing. Aislinn Rowe INSTRUCTOR OF SOCIOLOGY, [employer]
== END 2020-11-28 03:05 | DRG 177 ==
LOC: ED 11:17 → MS3 16:04 → PCU 11-25 21:59
PROVIDERS: Family Medicine; Internal Medicine Critical Care Medicine; Admitting Provider Internal Medicine; Emergency Provider Emergency Medicine; PCP Internal Medicine; Visit Provider Student in an Organized Health Care Education/Training Program
DX: U07.1 COVID-19 (principal); J12.82 Pneumonia due to coronavirus disease 2019; J96.01 Acute respiratory failure with hypoxia; J69.0 Pneumonitis due to inhalation of food and vomit; N39.0 Urinary tract infection, site not specified; E87.1 Hypo-osmolality and hyponatremia; E11.649 Type 2 diabetes mellitus with hypoglycemia without coma; R13.10 Dysphagia, unspecified; E87.6 Hypokalemia; I48.91 Unspecified atrial fibrillation; Z66 Do not resuscitate; F02.80 Dementia in other diseases classified elsewhere, unspecified severity, without behavioral disturbance, psychotic disturbance, mood disturbance, and anxiety; G30.9 Alzheimer's disease, unspecified; I10 Essential (primary) hypertension; B96.20 Unspecified Escherichia coli [E. coli] as the cause of diseases classified elsewhere; E78.5 Hyperlipidemia, unspecified; Z28.3 Underimmunization status; I25.10 Atherosclerotic heart disease of native coronary artery without angina pectoris; Z87.891 Personal history of nicotine dependence; Z51.5 Encounter for palliative care; Z79.82 Long term (current) use of aspirin; Z88.0 Allergy status to penicillin; Z90.49 Acquired absence of other specified parts of digestive tract; Z95.5 Presence of coronary angioplasty implant and graft
CPT/HCPCS: 36415; 36600; 71045; 71275; 74019; 80048; 80053; 81001; 82947; 82962; 83605; 83880; 84145; 84484; 85025; 87040; 87086; 87088; 87186; 87426; 87449; 87641; 92610; 93005; 94002; 94003; 94660; 94762; 97110; 97116; 97162; 97166; 97530; 97535; 99251; 99285; J2185; J7050; J7120; Q9967; A4216; G0463; J1940; J2405